=== PATIENT | female | born 1985 | race African-American/Black ===

== ENCOUNTER 2017-07-27 13:36 | Emergency (ER) | payer OTHER ==
[2017-07-27 17:33] LABS: URINE PH (Dip) POC 6.5 (5.0-8.5)
[2017-07-27 17:33] LABS: URINE BLOOD (Dip) POC Negative (NEGATIVE); URINE GLUCOSE (Dip) POC Negative (NEGATIVE); URINE KETONES (Dip) POC Negative (NEGATIVE); URINE LEUKOCYTE EST (Dip) POC Negative (NEGATIVE); URINE NITRITE (Dip) POC Negative (NEGATIVE); URINE TOTAL PROTEIN POC Negative (NEGATIVE)
== END 2017-07-27 17:57 | disposition home or self-care (01) ==
LOC: E/R 13:36
DX: R10.31 Right lower quadrant pain (principal); R10.32 Left lower quadrant pain; R40.2252 Coma scale, best verbal response, oriented, at arrival to emergency department; R40.2142 Coma scale, eyes open, spontaneous, at arrival to emergency department; R40.2362 Coma scale, best motor response, obeys commands, at arrival to emergency department
CPT/HCPCS: 74176; 81003; 99284-25

== ENCOUNTER 2017-09-18 19:48 | Emergency (ER) | payer OTHER ==
[2017-09-18] MEDS: HYDROmorphONE 0.5 MG/0.5 ML SYG IV (23:07)
[2017-09-18] MEDS: ONDANSETRON 4 MG INJ IV (23:07)
[2017-09-18] MEDS: SOD CHLORIDE 0.9% 1,000 ML IV (23:07)
[2017-09-18 23:08] LABS: ADD MAN DIFF? NO
[2017-09-18 23:12] LABS: WHITE BLOOD COUNT 6.4 10^3/ul (4.8-10.8)
[2017-09-18 23:12] LABS: BASOPHILS % 0.5 % (0.0-2.0); EOSINOPHILS # 0.7 10^3/ul (0.0-0.5); EOSINOPHILS % 10.6 % (0.0-7.0); LYMPHOCYTES # 2.4 10^3/ul (0.8-2.9); LYMPHOCYTES % 37.8 % (15.0-51.0); MEAN CORPUSCULAR HEMOGLOBIN 31.5 pg (29.0-33.0); MEAN CORPUSCULAR HGB CONC 33.3 g/dl (32.0-37.0); MEAN CORPUSCULAR VOLUME 94.4 fl (82.0-101.0); MONOCYTE # 0.7 10^3/ul (0.3-0.9); MONOCYTES % 10.9 % (0.0-11.0); NEUTROPHIL # 2.6 10^3/ul (1.6-7.5); PLATELET COUNT 141 10^3/UL (140-415); RED BLOOD COUNT 2.86 10^6/ul (4.20-5.40); RED CELL DISTRIBUTION WIDTH 13.9 % (11.5-14.5)
[2017-09-18 23:29] LABS: ALANINE AMINOTRANSFERASE 44 IU/L (13-69); ALBUMIN 5.2 g/dl (3.3-4.9); ALKALINE PHOSPHATASE 68 IU/L (42-121); ANION GAP 17 (8-16); ASPARTATE AMINO TRANSFERASE 51 IU/L (15-46); BILIRUBIN,INDIRECT 0.4 mg/dl (0-1.1); BILIRUBIN,TOTAL 0.4 mg/dl (0.2-1.3); BLOOD UREA NITROGEN 8 mg/dl (7-20); CALCIUM 9.7 mg/dl (8.4-10.2); CARBON DIOXIDE 28 mmol/L (21-31); CHLORIDE 105 mmol/L (97-110); CREATININE 1.01 mg/dl (0.44-1.00); GLUCOSE 80 mg/dl (70-220); LIPASE 39 U/L (23-300); POTASSIUM 4.2 mmol/L (3.5-5.1); SODIUM 146 mmol/L (135-144)
[2017-09-18 23:37] LABS: TOTAL PROTEIN 10.4 g/dl (6.1-8.1); URINE BLOOD (Dip) POC Trace-intact (NEGATIVE); URINE GLUCOSE (Dip) POC Negative (NEGATIVE); URINE KETONES (Dip) POC Negative (NEGATIVE); URINE LEUKOCYTE EST (Dip) POC 1+ (NEGATIVE); URINE NITRITE (Dip) POC Negative (NEGATIVE); URINE TOTAL PROTEIN POC Negative (NEGATIVE)
[2017-09-19] MEDS: HYDROmorphONE 0.5 MG/0.5 ML SYG IV (01:22)
== END 2017-09-19 02:13 | disposition home or self-care (01) ==
LOC: FTE 09-19 02:13
DX: G43.909 Migraine, unspecified, not intractable, without status migrainosus (principal); N30.00 Acute cystitis without hematuria; D64.9 Anemia, unspecified; E03.9 Hypothyroidism, unspecified
CPT/HCPCS: 36415; 80053; 81003; 83690; 85025; 96374; 96375; 96376; 99284-25

== ENCOUNTER 2017-09-19 19:10 | Emergency (ER) | payer OTHER ==
[2017-09-19] MEDS: DIPHENHYDRAMINE 50 MG INJ IV (23:31)
[2017-09-19] MEDS: METOCLOPRAMIDE 10 MG INJ IV ×2 (23:31→23:52)
[2017-09-19] MEDS: KETOROLAC 30 MG INJ IV (23:32)
[2017-09-19 23:55] LABS: ADD MAN DIFF? NO
[2017-09-19 23:57] LABS: BASOPHIL # 0.1 10^3/ul (0.0-0.1); BASOPHILS % 0.8 % (0.0-2.0); EOSINOPHILS # 0.5 10^3/ul (0.0-0.5); EOSINOPHILS % 8.8 % (0.0-7.0); HEMATOCRIT 26.5 % (37.0-47.0); HEMOGLOBIN 8.9 g/dl (12.0-16.0); LYMPHOCYTES # 1.9 10^3/ul (0.8-2.9); LYMPHOCYTES % 31.1 % (15.0-51.0); MEAN CORPUSCULAR HEMOGLOBIN 31.8 pg (29.0-33.0); MEAN CORPUSCULAR HGB CONC 33.6 g/dl (32.0-37.0); MEAN CORPUSCULAR VOLUME 94.6 fl (82.0-101.0); MEAN PLATELET VOLUME 11.1 fl (7.4-10.4); MONOCYTE # 0.7 10^3/ul (0.3-0.9); MONOCYTES % 10.8 % (0.0-11.0); NEUTROPHIL # 2.9 10^3/ul (1.6-7.5); NEUTROPHILS % 48.3 % (39.0-77.0); PLATELET COUNT 141 10^3/UL (140-415); RED CELL DISTRIBUTION WIDTH 13.9 % (11.5-14.5)
[2017-09-20 00:13] LABS: ANION GAP 16 (8-16); BLOOD UREA NITROGEN 10 mg/dl (7-20); CALCIUM 9.7 mg/dl (8.4-10.2); CARBON DIOXIDE 29 mmol/L (21-31); CHLORIDE 105 mmol/L (97-110); CREATININE 1.18 mg/dl (0.44-1.00); GLUCOSE 84 mg/dl (70-220); POTASSIUM 4.2 mmol/L (3.5-5.1); SODIUM 146 mmol/L (135-144)
== END 2017-09-20 01:18 | disposition home or self-care (01) ==
LOC: FTE 09-20 01:18
DX: R51 Headache (principal); F17.210 Nicotine dependence, cigarettes, uncomplicated; E03.9 Hypothyroidism, unspecified
CPT/HCPCS: 36415; 70450; 80048; 85025; 96374; 96375; 99285-25

== ENCOUNTER 2017-12-29 16:38 | Emergency (ER) | payer OTHER ==
[2017-12-29] MEDS: DIPHENHYDRAMINE 50 MG INJ IV (19:11)
[2017-12-29] MEDS: KETOROLAC 30 MG INJ IV (19:11)
[2017-12-29 19:24] LABS: ADD MAN DIFF? NO
[2017-12-29 19:30] LABS: ADD UMIC NO; UR ASCORBIC ACID NEGATIVE (NEGATIVE); UR BILIRUBIN (Dip) NEGATIVE (NEGATIVE); UR BLOOD (Dip) NEGATIVE (NEGATIVE); UR CLARITY CLEAR (CLEAR); UR COLOR STRAW (YELLOW); UR GLUCOSE (Dip) NEGATIVE (NEGATIVE); UR KETONES (Dip) NEGATIVE (NEGATIVE); UR LEUKOCYTE ESTERASE (Dip) NEGATIVE Leu/ul (NEGATIVE); UR NITRITE (Dip) NEGATIVE (NEGATIVE); UR SPECIFIC GRAVITY (Dip) 1.012 (1.003-1.030); UR TOTAL PROTEIN (Dip) NEGATIVE (NEGATIVE); UR UROBILINOGEN (Dip) NEGATIVE (NEGATIVE)
[2017-12-29 19:31] LABS: WHITE BLOOD COUNT 6.1 10^3/ul (4.8-10.8)
[2017-12-29 19:31] LABS: ABNORMAL IP MESSAGE 1; BASOPHILS % 0.7 % (0.0-2.0); EOSINOPHILS # 0.2 10^3/ul (0.0-0.5); EOSINOPHILS % 3.8 % (0.0-7.0); HEMATOCRIT 26.7 % (37.0-47.0); LYMPHOCYTES # 2.1 10^3/ul (0.8-2.9); LYMPHOCYTES % 34.8 % (15.0-51.0); MEAN CORPUSCULAR HEMOGLOBIN 30.9 pg (29.0-33.0); MEAN CORPUSCULAR HGB CONC 33.7 g/dl (32.0-37.0); MEAN CORPUSCULAR VOLUME 91.8 fl (82.0-101.0); MEAN PLATELET VOLUME 12.8 fl (7.4-10.4); MONOCYTE # 0.5 10^3/ul (0.3-0.9); MONOCYTES % 8.4 % (0.0-11.0); NEUTROPHIL # 3.2 10^3/ul (1.6-7.5); PLATELET COUNT 95 10^3/UL (140-415); POSITIVE DIFF @See below; RED BLOOD COUNT 2.91 10^6/ul (4.20-5.40)
[2017-12-29 19:47] LABS: ALANINE AMINOTRANSFERASE 65 IU/L (13-69); ALKALINE PHOSPHATASE 61 IU/L (42-121); ANION GAP 14 (8-16); ASPARTATE AMINO TRANSFERASE 77 IU/L (15-46); BILIRUBIN,INDIRECT 0.4 mg/dl (0-1.1); BILIRUBIN,TOTAL 0.4 mg/dl (0.2-1.3); BLOOD UREA NITROGEN 10 mg/dl (7-20); CALCIUM 9.8 mg/dl (8.4-10.2); CARBON DIOXIDE 30 mmol/L (21-31); CHLORIDE 101 mmol/L (97-110); CREATININE 1.34 mg/dl (0.44-1.00); GLUCOSE 87 mg/dl (70-220); POTASSIUM 4.1 mmol/L (3.5-5.1)
[2017-12-29 19:55] LABS: B-TYPE NATRIURETIC PEPTIDE 40 PG/ML (0-125)
[2017-12-29 20:00] LABS: SODIUM 141 mmol/L (135-144); TOTAL PROTEIN 11.2 g/dl (6.1-8.1)
== END 2017-12-29 23:22 | disposition home or self-care (01) ==
LOC: FTE 16:38
DX: H02.841 Edema of right upper eyelid (principal); F17.210 Nicotine dependence, cigarettes, uncomplicated; E03.9 Hypothyroidism, unspecified; H02.844 Edema of left upper eyelid
CPT/HCPCS: 36415; 71045; 80053; 81003; 81025; 83880; 85025; 96374; 96375; 99284-25

== ENCOUNTER 2018-03-08 12:25 | Emergency (ER) | payer OTHER ==
[2018-03-08] MEDS: morphine 4 MG/ML VIAL IV (13:28)
[2018-03-08] MEDS: ONDANSETRON 4 MG INJ IV (13:29)
[2018-03-08] MEDS: SOD CHLORIDE 0.9% 1,000 ML IV (13:29)
[2018-03-08 13:39] LABS: ADD MAN DIFF? NO
[2018-03-08 13:51] LABS: WHITE BLOOD COUNT 5.7 10^3/ul (4.8-10.8)
[2018-03-08 13:51] LABS: BASOPHILS % 0.7 % (0.0-2.0); EOSINOPHILS # 0.2 10^3/ul (0.0-0.5); EOSINOPHILS % 3.3 % (0.0-7.0); HEMATOCRIT 26.3 % (37.0-47.0); HEMOGLOBIN 8.7 g/dl (12.0-16.0); LYMPHOCYTES # 1.8 10^3/ul (0.8-2.9); LYMPHOCYTES % 31.6 % (15.0-51.0); MEAN CORPUSCULAR HEMOGLOBIN 31.4 pg (29.0-33.0); MEAN CORPUSCULAR HGB CONC 33.1 g/dl (32.0-37.0); MEAN CORPUSCULAR VOLUME 94.9 fl (82.0-101.0); MEAN PLATELET VOLUME 11.4 fl (7.4-10.4); MONOCYTES % 16.9 % (0.0-11.0); NEUTROPHIL # 2.7 10^3/ul (1.6-7.5); NEUTROPHILS % 47.3 % (39.0-77.0); PLATELET COUNT 140 10^3/UL (140-415); RED BLOOD COUNT 2.77 10^6/ul (4.20-5.40); RED CELL DISTRIBUTION WIDTH 13.4 % (11.5-14.5)
[2018-03-08 14:11] LABS: ALANINE AMINOTRANSFERASE 44 IU/L (13-69); ALBUMIN 4.6 g/dl (3.3-4.9); ALBUMIN/GLOBULIN RATIO 0.73; ALKALINE PHOSPHATASE 80 IU/L (42-121); ANION GAP 13 (8-16); ASPARTATE AMINO TRANSFERASE 52 IU/L (15-46); BILIRUBIN,INDIRECT 0.4 mg/dl (0-1.1); BILIRUBIN,TOTAL 0.4 mg/dl (0.2-1.3); BLOOD UREA NITROGEN 10 mg/dl (7-20); CALCIUM 10.1 mg/dl (8.4-10.2); CARBON DIOXIDE 28 mmol/L (21-31); CHLORIDE 106 mmol/L (97-110); CREATININE 0.98 mg/dl (0.44-1.00); GLUCOSE 90 mg/dl (70-220); POTASSIUM 4.5 mmol/L (3.5-5.1); SODIUM 142 mmol/L (135-144); TOTAL PROTEIN 10.9 g/dl (6.1-8.1)
[2018-03-08 14:18] LABS: ADD UMIC YES; UR ASCORBIC ACID 20 mg/dL (NEGATIVE); UR BACTERIA FEW /HPF (NONE SEEN); UR BILIRUBIN (Dip) NEGATIVE (NEGATIVE); UR BLOOD (Dip) NEGATIVE (NEGATIVE); UR CLARITY SLIGHTLY CLOUDY (CLEAR); UR COLOR YELLOW (YELLOW); UR GLUCOSE (Dip) NEGATIVE (NEGATIVE); UR KETONES (Dip) NEGATIVE (NEGATIVE); UR LEUKOCYTE ESTERASE (Dip) 2+ Leu/ul (NEGATIVE); UR MUCUS FEW /HPF (NONE SEEN); UR NITRITE (Dip) NEGATIVE (NEGATIVE); UR RBC 5 /HPF (0-5); UR SPECIFIC GRAVITY (Dip) 1.015 (1.003-1.030); UR SQUAMOUS EPITHELIAL CELL MODERATE /HPF (FEW); UR TOTAL PROTEIN (Dip) NEGATIVE (NEGATIVE); UR UROBILINOGEN (Dip) NEGATIVE (NEGATIVE); UR WBC 6 /HPF (0-5)
[2018-03-08 14:22] LABS: TROPONIN-I < 0.012 ng/ml (0.000-0.120)
[2018-03-08 14:26] LABS: FREE THYROXINE INDEX (Calc) 4.61 ug/ml (0.65-3.89); T3 UPTAKE 30.3 % (23.5-40.5); T4 (THYROXINE) 15.2 ug/dl (5.5-11.0)
[2018-03-08 14:27] LABS: INR 1.03; PARTIAL THROMBOPLASTIN TIME 32.4 Sec (25.0-35.0); PROTIME 13.6 Sec (11.9-14.9); PT RATIO 1.1
[2018-03-08] MEDS: HYDROmorphONE 0.5 MG/0.5 ML SYG IV ×2 (14:52→15:53)
== END 2018-03-08 16:03 | disposition home or self-care (01) ==
LOC: FTE 12:25
DX: N39.0 Urinary tract infection, site not specified (principal); R42 Dizziness and giddiness; M79.89 Other specified soft tissue disorders; E03.9 Hypothyroidism, unspecified; F17.210 Nicotine dependence, cigarettes, uncomplicated
CPT/HCPCS: 70450; 71046; 80053; 81001; 81025; 84436; 84443; 84479; 84484; 85025; 85610; 85730; 87086; 93005; 93970; 96361; 96374; 96375; 96376; 99285-25

== ENCOUNTER 2018-05-10 12:30 | Emergency (ER) | payer OTHER ==
[2018-05-10 13:16] LABS: ABNORMAL IP MESSAGE 1; ADD MAN DIFF? NO; BASOPHIL # 0.1 10^3/ul (0.0-0.1); BASOPHILS % 0.8 % (0.0-2.0); EOSINOPHILS # 0.2 10^3/ul (0.0-0.5); EOSINOPHILS % 3.2 % (0.0-7.0); HEMOGLOBIN 9.7 g/dl (12.0-16.0); LYMPHOCYTES # 2.7 10^3/ul (0.8-2.9); LYMPHOCYTES % 40.4 % (15.0-51.0); MEAN CORPUSCULAR HEMOGLOBIN 30.8 pg (29.0-33.0); MEAN CORPUSCULAR HGB CONC 33.4 g/dl (32.0-37.0); MEAN CORPUSCULAR VOLUME 92.1 fl (82.0-101.0); MONOCYTE # 0.5 10^3/ul (0.3-0.9); MONOCYTES % 7.5 % (0.0-11.0); NEUTROPHIL # 3.2 10^3/ul (1.6-7.5); NEUTROPHILS % 47.9 % (39.0-77.0); RED BLOOD COUNT 3.15 10^6/ul (4.20-5.40); RED CELL DISTRIBUTION WIDTH 13.2 % (11.5-14.5)
[2018-05-10 13:16] LABS: WHITE BLOOD COUNT 6.6 10^3/ul (4.8-10.8)
[2018-05-10 13:18] LABS: POSITIVE DIFF @See below
[2018-05-10 13:35] LABS: INR 0.99; PROTIME 13.2 Sec (11.9-14.9)
[2018-05-10 13:36] LABS: PARTIAL THROMBOPLASTIN TIME 32.1 Sec (23.0-35.0)
[2018-05-10 13:48] LABS: PLATELET COUNT 29 10^3/UL (140-415)
[2018-05-10 13:51] LABS: BAND NEUTROPHILS #M 0.1 10^3/ul (0.0-0.6); BAND NEUTROPHILS % (M) 3 % (0-4); BURR CELLS 1+ (0-0); EOSINOPHILS % (M) 5 % (0-7); LYMPHOCYTES #M 2.9 10^3/ul (0.8-2.9); LYMPHOCYTES % (M) 45 % (15-51); MONOCYTE #M 0.2 10^3/ul (0.3-0.9); MONOCYTES % (M) 4 % (0-11); PLATELET ESTIMATE SIG DECREASED; PLATELET MORPHOLOGY COMMENT @See below; POIKILOCYTOSIS 1+ (0-0); POLYCHROMASIA 1+ (0-0); SEG NEUT #M 2.8 10^3/ul (1.6-7.5); SEGMENTED NEUTROPHILS (M) % 43 % (39-77); SMUDGE%M 16 % (0-0)
[2018-05-10] MEDS: ONDANSETRON (ODT) 4 MG TAB ODT (14:02)
== END 2018-05-10 14:36 | disposition home or self-care (01) ==
LOC: E/R 12:30
DX: S80.12XA Contusion of left lower leg, initial encounter (principal); D69.6 Thrombocytopenia, unspecified; D64.9 Anemia, unspecified; E03.9 Hypothyroidism, unspecified; F17.210 Nicotine dependence, cigarettes, uncomplicated; X58.XXXA Exposure to other specified factors, initial encounter; Y92.9 Unspecified place or not applicable
CPT/HCPCS: 76536; 85025; 85610; 85730; 99284-25

== ENCOUNTER 2018-08-09 13:04 | Emergency (ER) | payer OTHER ==
[2018-08-09] MEDS: HYDROmorphONE 0.5 MG/0.5 ML SYG IV (14:05)
[2018-08-09] MEDS: SOD CHLORIDE 0.9% 1,000 ML IV (14:05)
[2018-08-09] MEDS: METHYLPREDNISOLONE 125 MG INJ IV (14:05)
[2018-08-09 14:12] LABS: ABNORMAL IP MESSAGE 1; HEMATOCRIT 26.1 % (37.0-47.0); HEMOGLOBIN 8.7 g/dl (12.0-16.0); MEAN CORPUSCULAR HEMOGLOBIN 30.9 pg (29.0-33.0); MEAN CORPUSCULAR HGB CONC 33.3 g/dl (32.0-37.0); MEAN CORPUSCULAR VOLUME 92.6 fl (82.0-101.0); MEAN PLATELET VOLUME 12.3 fl (7.4-10.4); RED BLOOD COUNT 2.82 10^6/ul (4.20-5.40); RED CELL DISTRIBUTION WIDTH 14.2 % (11.5-14.5); RETICULOCYTE COUNT # 0.037 X10^6 (0.020-0.110); RETICULOCYTE COUNT % 1.3 % (0.5-1.5); RETICULOCYTE RBC 2.82
[2018-08-09 14:12] LABS: WHITE BLOOD COUNT 5.3 10^3/ul (4.8-10.8)
[2018-08-09 14:14] LABS: POSITIVE DIFF @See below
[2018-08-09 14:16] LABS: PLATELET COUNT 30 10^3/UL (140-415)
[2018-08-09 14:17] LABS: ADD MAN DIFF? YES; PATH REVIEW? YES
[2018-08-09 14:31] LABS: ALANINE AMINOTRANSFERASE 24 IU/L (13-69); ALBUMIN 5.2 g/dl (3.3-4.9); ALKALINE PHOSPHATASE 58 IU/L (42-121); ANION GAP 15 (5-13); ASPARTATE AMINO TRANSFERASE 49 IU/L (15-46); BILIRUBIN,INDIRECT 0.2 mg/dl (0-1.1); BILIRUBIN,TOTAL 0.2 mg/dl (0.2-1.3); BLOOD UREA NITROGEN 8 mg/dl (7-20); CARBON DIOXIDE 26 mmol/L (21-31); CHLORIDE 101 mmol/L (97-110); CREATININE 1.19 mg/dl (0.44-1.00); Estimated GFR > 60 mL/min (>60); GLUCOSE 102 mg/dl (70-220); INR 0.95; PARTIAL THROMBOPLASTIN TIME 31.3 Sec (23.0-35.0); PROTIME 12.8 Sec (11.9-14.9); SODIUM 142 mmol/L (135-144)
[2018-08-09 14:40] LABS: ALBUMIN/GLOBULIN RATIO 0.88; TOTAL PROTEIN 11.1 g/dl (6.1-8.1)
[2018-08-09 14:51] LABS: BAND NEUTROPHILS #M 0.2 10^3/ul (0.0-0.6); BAND NEUTROPHILS % (M) 5 % (0-4); BASOPHIL #M 0.1 10^3/ul (0.0-0.0); BASOPHILS % (M) 2 % (0-2); EOSINOPHILS % (M) 5 % (0-7); LYMPHOCYTES #M 1.6 10^3/ul (0.8-2.9); LYMPHOCYTES % (M) 31 % (15-51); MONOCYTE #M 0.4 10^3/ul (0.3-0.9); MONOCYTES % (M) 9 % (0-11); PLATELET ESTIMATE DECREASED; POLYCHROMASIA 1+ (0-0); REACTIVE LYMPHOCYTES #M 0.1 10^3/ul (0.0-0.0); REACTIVE LYMPHOCYTES% (M) 2 % (0-0); SEG NEUT #M 2.4 10^3/ul (1.6-7.5); SEGMENTED NEUTROPHILS (M) % 46 % (39-77); SMUDGE%M 17 % (0-0)
[2018-08-09] MEDS: ONDANSETRON 4 MG INJ IV (15:02)
[2018-08-09] MEDS: HYDROmorphONE 2 MG/ML SYG IV (15:02)
== END 2018-08-09 15:52 | disposition home or self-care (01) ==
LOC: E/R 15:52
DX: G89.4 Chronic pain syndrome (principal); D69.3 Immune thrombocytopenic purpura; D64.9 Anemia, unspecified; N18.9 Chronic kidney disease, unspecified; E03.9 Hypothyroidism, unspecified; Z87.891 Personal history of nicotine dependence
CPT/HCPCS: 80053; 81025; 85025; 85045; 85610; 85730; 96374; 96375; 96376; 99284-25

== ENCOUNTER 2018-10-11 12:41 | Emergency (ER) | payer OTHER ==
[2018-10-11 14:44] LABS: ABNORMAL IP MESSAGE 1; HEMATOCRIT 25.4 % (37.0-47.0); HEMOGLOBIN 8.3 g/dl (12.0-16.0); MEAN CORPUSCULAR HEMOGLOBIN 31.2 pg (29.0-33.0); MEAN CORPUSCULAR HGB CONC 32.7 g/dl (32.0-37.0); MEAN CORPUSCULAR VOLUME 95.5 fl (82.0-101.0); MEAN PLATELET VOLUME 12.2 fl (7.4-10.4); RED BLOOD COUNT 2.66 10^6/ul (4.20-5.40); RED CELL DISTRIBUTION WIDTH 12.9 % (11.5-14.5)
[2018-10-11 14:44] LABS: WHITE BLOOD COUNT 5.3 10^3/ul (4.8-10.8)
[2018-10-11] MEDS: ONDANSETRON 4 MG INJ IV ×2 (14:52→17:49)
[2018-10-11] MEDS: HYDROmorphONE 1 MG/ML SYG IV ×2 (14:52→17:50)
[2018-10-11] MEDS: DIPHENHYDRAMINE 50 MG INJ IV ×2 (14:52→17:49)
[2018-10-11 14:53] LABS: ADD MAN DIFF? YES; PLATELET COUNT 27 10^3/UL (140-415); POSITIVE DIFF @See below
[2018-10-11 15:04] LABS: PARTIAL THROMBOPLASTIN TIME 32.2 Sec (23.0-35.0); PROTIME 13.3 Sec (11.9-14.9)
[2018-10-11 15:05] LABS: RETICULOCYTE COUNT # 0.043 X10^6 (0.020-0.110); RETICULOCYTE COUNT % 1.6 % (0.5-1.5)
[2018-10-11 15:05] LABS: RETICULOCYTE RBC 2.67
[2018-10-11 15:09] LABS: ALANINE AMINOTRANSFERASE 29 IU/L (13-69); ALBUMIN 4.7 g/dl (3.3-4.9); ALBUMIN/GLOBULIN RATIO 0.94; ALKALINE PHOSPHATASE 53 IU/L (42-121); ANION GAP 9 (5-13); ASPARTATE AMINO TRANSFERASE 34 IU/L (15-46); BILIRUBIN,INDIRECT 0.2 mg/dl (0-1.1); BILIRUBIN,TOTAL 0.2 mg/dl (0.2-1.3); BLOOD UREA NITROGEN 10 mg/dl (7-20); CALCIUM 9.4 mg/dl (8.4-10.2); CARBON DIOXIDE 31 mmol/L (21-31); CHLORIDE 103 mmol/L (97-110); CREATININE 1.06 mg/dl (0.44-1.00); Estimated GFR > 60 mL/min (>60); GLUCOSE 78 mg/dl (70-220); POTASSIUM 4.1 mmol/L (3.5-5.1); SODIUM 143 mmol/L (135-144); TOTAL PROTEIN 9.7 g/dl (6.1-8.1)
[2018-10-11] MEDS: ARTIFICIAL TEARS 15 ML OPH BOTH EYES (15:12)
[2018-10-11] MEDS: SOD CHLORIDE 0.9% 1,000 ML IV (15:12)
[2018-10-11] MEDS: TETRACAINE 0.5% 4 ML OPH BOTH EYES (15:12)
[2018-10-11 15:44] LABS: BASOPHILS % (M) 1 % (0-2); EOSINOPHILS % (M) 14 % (0-7); ERYTHROBLAST% (NRBC) (M) 1 % (0-0); HYPOCHROMASIA 1+ (0-0); LYMPHOCYTES #M 1.9 10^3/ul (0.8-2.9); LYMPHOCYTES % (M) 36 % (15-51); MONOCYTE #M 0.3 10^3/ul (0.3-0.9); MONOCYTES % (M) 7 % (0-11); PLATELET ESTIMATE SIG DECREASED; POLYCHROMASIA 1+ (0-0); SEGMENTED NEUTROPHILS (M) % 42 % (39-77)
== END 2018-10-11 19:00 | disposition home or self-care (01) ==
LOC: FTE 12:41 → E/R 19:00
DX: H18.893 Other specified disorders of cornea, bilateral (principal); D69.6 Thrombocytopenia, unspecified; M32.9 Systemic lupus erythematosus, unspecified; Z87.891 Personal history of nicotine dependence
CPT/HCPCS: 36415; 80053; 84703; 85025; 85045; 85610; 85730; 96374; 96375; 96376; 99284-25

== ENCOUNTER 2018-12-02 11:24 | Emergency (ER) | payer OTHER ==
[2018-12-02] MEDS: HYDROmorphONE 1 MG/ML SYG IV (12:54)
[2018-12-02] MEDS: SOD CHLORIDE 0.9% 1,000 ML IV (12:54)
[2018-12-02] MEDS: ONDANSETRON 4 MG INJ IV (12:54)
[2018-12-02] MEDS: DIPHENHYDRAMINE 50 MG INJ IV (12:54)
[2018-12-02 13:01] LABS: WHITE BLOOD COUNT 7.5 10^3/ul (4.8-10.8)
[2018-12-02 13:01] LABS: ABNORMAL IP MESSAGE 1; HEMATOCRIT 28.6 % (37.0-47.0); HEMOGLOBIN 9.9 g/dl (12.0-16.0); MEAN CORPUSCULAR HEMOGLOBIN 31.5 pg (29.0-33.0); MEAN CORPUSCULAR HGB CONC 34.6 g/dl (32.0-37.0); MEAN CORPUSCULAR VOLUME 91.1 fl (82.0-101.0); RED BLOOD COUNT 3.14 10^6/ul (4.20-5.40); RED CELL DISTRIBUTION WIDTH 13.2 % (11.5-14.5)
[2018-12-02 13:02] LABS: ADD MAN DIFF? YES; PLATELET COUNT 47 10^3/UL (140-415); POSITIVE DIFF @See below
[2018-12-02 13:03] LABS: ADD UMIC YES; UR ASCORBIC ACID NEGATIVE (NEGATIVE); UR BACTERIA FEW /HPF (NONE SEEN); UR BILIRUBIN (Dip) NEGATIVE (NEGATIVE); UR BLOOD (Dip) NEGATIVE (NEGATIVE); UR CLARITY CLOUDY (CLEAR); UR COLOR YELLOW (YELLOW); UR GLUCOSE (Dip) NEGATIVE (NEGATIVE); UR KETONES (Dip) NEGATIVE (NEGATIVE); UR LEUKOCYTE ESTERASE (Dip) NEGATIVE Leu/ul (NEGATIVE); UR MUCUS FEW /HPF (NONE SEEN); UR NITRITE (Dip) NEGATIVE (NEGATIVE); UR RBC 0 /HPF (0-5); UR SPECIFIC GRAVITY (Dip) 1.014 (1.003-1.030); UR SQUAMOUS EPITHELIAL CELL MODERATE /HPF (FEW); UR TOTAL PROTEIN (Dip) NEGATIVE (NEGATIVE); UR UROBILINOGEN (Dip) 1+ mg/dL (NEGATIVE); UR WBC 2 /HPF (0-5)
[2018-12-02 13:07] LABS: ANION GAP 7 (5-13); BLOOD UREA NITROGEN 7 mg/dl (7-20); CALCIUM 9.3 mg/dl (8.4-10.2); CARBON DIOXIDE 28 mmol/L (21-31); CHLORIDE 107 mmol/L (97-110); CREATININE 0.88 mg/dl (0.44-1.00); Estimated GFR > 60 mL/min (>60); GLUCOSE 64 mg/dl (70-220); POTASSIUM 3.8 mmol/L (3.5-5.1); SODIUM 142 mmol/L (135-144)
[2018-12-02] MEDS: HYDROmorphONE 2 MG/ML SYG IV (13:27)
== END 2018-12-02 14:33 | disposition home or self-care (01) ==
LOC: E/R 11:24
DX: D57.00 Hb-SS disease with crisis, unspecified (principal); E03.9 Hypothyroidism, unspecified; Z87.891 Personal history of nicotine dependence
CPT/HCPCS: 36415; 80048; 81001; 81025; 85025; 93005; 96374; 96375; 96376; 99284-25

== ENCOUNTER 2019-01-06 12:51 | Inpatient (IN) | payer OTHER ==
[2019-01-06 15:50] LABS: ABNORMAL IP MESSAGE 1; HEMATOCRIT 31.9 % (37.0-47.0); HEMOGLOBIN 10.6 g/dl (12.0-16.0); MEAN CORPUSCULAR HEMOGLOBIN 29.4 pg (29.0-33.0); MEAN CORPUSCULAR HGB CONC 33.2 g/dl (32.0-37.0); MEAN CORPUSCULAR VOLUME 88.6 fl (82.0-101.0); RED CELL DISTRIBUTION WIDTH 13.5 % (11.5-14.5); RETICULOCYTE COUNT # 0.054 X10^6 (0.020-0.110); RETICULOCYTE COUNT % 1.5 % (0.5-1.5)
[2019-01-06 15:50] LABS: WHITE BLOOD COUNT 6.5 10^3/ul (4.8-10.8)
[2019-01-06 15:53] LABS: PLATELET COUNT 3 10^3/UL (140-415); POSITIVE DIFF @See below
[2019-01-06 15:54] LABS: PATH REVIEW? YES
[2019-01-06 15:55] LABS: ADD MAN DIFF? YES
[2019-01-06] MEDS: SOD CHLORIDE 0.9% 1,000 ML IV (16:05)
[2019-01-06] MEDS: ONDANSETRON 4 MG INJ IV ×3 (16:07→19:56)
[2019-01-06] MEDS: HYDROmorphONE 1 MG/ML SYG IV ×3 (16:07→23:25)
[2019-01-06] MEDS: DIPHENHYDRAMINE 50 MG INJ IV ×2 (16:07→20:13)
[2019-01-06 16:16] LABS: ALANINE AMINOTRANSFERASE 14 IU/L (13-69); ALBUMIN 4.9 g/dl (3.3-4.9); ALBUMIN/GLOBULIN RATIO 0.85; ALKALINE PHOSPHATASE 69 IU/L (42-121); ANION GAP 10 (5-13); ASPARTATE AMINO TRANSFERASE 38 IU/L (15-46); BILIRUBIN,INDIRECT 0.5 mg/dl (0-1.1); BILIRUBIN,TOTAL 0.5 mg/dl (0.2-1.3); BLOOD UREA NITROGEN 8 mg/dl (7-20); CALCIUM 9.7 mg/dl (8.4-10.2); CARBON DIOXIDE 30 mmol/L (21-31); CHLORIDE 103 mmol/L (97-110); CREATININE 0.98 mg/dl (0.44-1.00); Estimated GFR > 60 mL/min (>60); GLUCOSE 94 mg/dl (70-220); POTASSIUM 3.9 mmol/L (3.5-5.1); SODIUM 143 mmol/L (135-144); TOTAL PROTEIN 10.6 g/dl (6.1-8.1)
[2019-01-06 16:17] LABS: INR 1.01; PROTIME 13.4 Sec (11.9-14.9)
[2019-01-06 16:18] LABS: PARTIAL THROMBOPLASTIN TIME 29.7 Sec (23.0-35.0)
[2019-01-06 17:15] LABS: ANISOCYTOSIS 1+ (0-0); BASOPHILS % (M) 1 % (0-2); EOSINOPHILS % (M) 2 % (0-7); LYMPHOCYTES #M 1.4 10^3/ul (0.8-2.9); LYMPHOCYTES % (M) 23 % (15-51); MONOCYTE #M 0.5 10^3/ul (0.3-0.9); MONOCYTES % (M) 9 % (0-11); SEGMENTED NEUTROPHILS (M) % 65 % (39-77); SMUDGE%M 18 % (0-0)
[2019-01-06] MEDS ORDERED: NACL 0.9% 3 ML SYG IV (17:30)
[2019-01-06] MEDS ORDERED: BISACODYL 10 MG SUPP PR (17:30)
[2019-01-06] MEDS ORDERED: ACETAMINOPHEN 325 MG TAB PO ×2 (17:30)
[2019-01-06] MEDS ORDERED: MAGNESIUM HYDROXIDE 30ML CUP PO (17:30)
[2019-01-06] MEDS ORDERED: DOCUSATE SODIUM 100 MG CAP PO (17:30)
[2019-01-06] MEDS ORDERED: IMMUNE GLOBULIN (HUMAN) 6 GM INJ IV (19:30)
[2019-01-06] MEDS: HYDROmorphONE 0.5 MG/0.5 ML SYG IV (19:56)
[2019-01-06] MEDS: EVAC CONTAINER IVPB (20:05)
[2019-01-06] MEDS: GLY IVPB (20:05)
[2019-01-06] MEDS: IGA AVG IVPB (20:05)
[2019-01-06] MEDS: IMMUNE GLOBUL IVPB (20:05)
[2019-01-06] MEDS: IMMUNE GLOBULIN IVPB (20:05)
[2019-01-06] MEDS: OXYCODONE/ACETAMINOPHEN (5/325) TAB PO (21:17)
[2019-01-07] MEDS: HYDROmorphONE 0.5 MG/0.5 ML SYG IV (01:20)
[2019-01-07 02:52] LABS: TYPE AND SCREEN 1 1
[2019-01-07 06:50] LABS: ADD MAN DIFF? NO
[2019-01-07 06:57] LABS: WHITE BLOOD COUNT 6.6 10^3/ul (4.8-10.8)
[2019-01-07 06:57] LABS: BASOPHILS % 0.5 % (0.0-2.0); EOSINOPHILS # 0.2 10^3/ul (0.0-0.5); EOSINOPHILS % 2.7 % (0.0-7.0); HEMATOCRIT 23.6 % (37.0-47.0); HEMOGLOBIN 7.8 g/dl (12.0-16.0); LYMPHOCYTES # 1.6 10^3/ul (0.8-2.9); LYMPHOCYTES % 24.1 % (15.0-51.0); MEAN CORPUSCULAR HEMOGLOBIN 30.8 pg (29.0-33.0); MEAN CORPUSCULAR HGB CONC 33.1 g/dl (32.0-37.0); MEAN CORPUSCULAR VOLUME 93.3 fl (82.0-101.0); MEAN PLATELET VOLUME 10.7 fl (7.4-10.4); MONOCYTE # 0.5 10^3/ul (0.3-0.9); MONOCYTES % 7.4 % (0.0-11.0); NEUTROPHIL # 4.3 10^3/ul (1.6-7.5); PLATELET COUNT 102 10^3/UL (140-415); RED BLOOD COUNT 2.53 10^6/ul (4.20-5.40); RED CELL DISTRIBUTION WIDTH 14.1 % (11.5-14.5)
[2019-01-07] MEDS: LEVOTHYROXINE 100 MCG TAB PO (07:02)
[2019-01-07 07:28] LABS: ALANINE AMINOTRANSFERASE 12 IU/L (13-69); ALBUMIN/GLOBULIN RATIO 0.72; ALKALINE PHOSPHATASE 56 IU/L (42-121); ANION GAP 8 (5-13); ASPARTATE AMINO TRANSFERASE 29 IU/L (15-46); BILIRUBIN,INDIRECT 0.4 mg/dl (0-1.1); BILIRUBIN,TOTAL 0.4 mg/dl (0.2-1.3); BLOOD UREA NITROGEN 12 mg/dl (7-20); CALCIUM 8.8 mg/dl (8.4-10.2); CARBON DIOXIDE 27 mmol/L (21-31); CHLORIDE 107 mmol/L (97-110); CREATININE 1.12 mg/dl (0.44-1.00); Estimated GFR > 60 mL/min (>60); GLUCOSE 82 mg/dl (70-220); POTASSIUM 4.2 mmol/L (3.5-5.1); SODIUM 142 mmol/L (135-144); TOTAL PROTEIN 9.5 g/dl (6.1-8.1)
[2019-01-07 07:51] LABS: FREE T4 (FREE THYROXINE) 0.15 ng/dl (0.79-2.35)
[2019-01-07] MEDS: HYDROmorphONE 1 MG/ML SYG IV ×5 (08:04→21:33)
[2019-01-07] MEDS: ONDANSETRON 4 MG INJ IV (08:05)
[2019-01-07] MEDS: DIPHENHYDRAMINE 50 MG CAP PO (08:15)
[2019-01-07] MEDS: CHOLECALCIFEROL 1,000 UNIT TAB PO (08:15)
[2019-01-07] MEDS: OXYCODONE/ACETAMINOPHEN (5/325) TAB PO (09:55)
[2019-01-07] MEDS ORDERED: LEVOTHYROXINE 100 MCG TAB PO (11:30)
[2019-01-07] MEDS: SOD CHLORIDE 0.9% 500 ML IV (11:57)
[2019-01-07] MEDS: SOD CHLORIDE 0.9% 1,000 ML IV ×2 (13:14→21:37)
[2019-01-07] MEDS: CYCLOBENZAPRINE 10 MG TAB PO ×2 (14:13→19:54)
[2019-01-07] MEDS ORDERED: OXYCODONE/ACETAMINOPHEN (10/325) TAB PO (14:30)
[2019-01-07 16:26] LABS: ADD MAN DIFF? NO
[2019-01-07 16:29] LABS: ABNORMAL IP MESSAGE 1; BASOPHILS % 0.4 % (0.0-2.0); EOSINOPHILS # 0.2 10^3/ul (0.0-0.5); EOSINOPHILS % 2.9 % (0.0-7.0); HEMOGLOBIN 8.2 g/dl (12.0-16.0); LYMPHOCYTES # 1.8 10^3/ul (0.8-2.9); LYMPHOCYTES % 36.1 % (15.0-51.0); MEAN CORPUSCULAR HEMOGLOBIN 30.8 pg (29.0-33.0); MEAN CORPUSCULAR HGB CONC 32.8 g/dl (32.0-37.0); MEAN PLATELET VOLUME 11.3 fl (7.4-10.4); MONOCYTE # 0.4 10^3/ul (0.3-0.9); MONOCYTES % 7.7 % (0.0-11.0); NEUTROPHIL # 2.7 10^3/ul (1.6-7.5); NEUTROPHILS % 52.3 % (39.0-77.0); RED BLOOD COUNT 2.66 10^6/ul (4.20-5.40); RED CELL DISTRIBUTION WIDTH 13.8 % (11.5-14.5)
[2019-01-07 16:29] LABS: WHITE BLOOD COUNT 5.1 10^3/ul (4.8-10.8)
[2019-01-07 16:35] LABS: POSITIVE DIFF @See below
[2019-01-07] MEDS: OXYCODONE/ACETAMINOPHEN (10/325) TAB PO (17:21)
[2019-01-07 17:27] LABS: PLATELET COUNT 97 10^3/UL (140-415)
[2019-01-07] MEDS ORDERED: LEVOTHYROXINE 500 MCG VIAL IV (19:00)
[2019-01-07] MEDS: DIPHENHYDRAMINE 50 MG INJ IV (21:33)
[2019-01-07] MEDS: LEVOTHYROXINE 100 MCG VIAL IV (22:05)
[2019-01-07] MEDS: LEVOTHYROXINE 200 MCG VIAL IV (22:05)
[2019-01-07 22:35] LABS: HEPATITIS B SURFACE ANTIGEN NEGATIVE (NEGATIVE)
[2019-01-07 22:37] LABS: HEPATITIS C VIRAL ANTIBODY REACTIVE (NEGATIVE)
[2019-01-08] MEDS: HYDROmorphONE 1 MG/ML SYG IV ×7 (00:38→23:41)
[2019-01-08] MEDS: DIPHENHYDRAMINE 50 MG INJ IV ×8 (01:12→23:41)
[2019-01-08] MEDS: LEVOTHYROXINE 100 MCG TAB PO (06:49)
[2019-01-08] MEDS ORDERED: LEVOTHYROXINE 125 MCG TAB PO (07:00)
[2019-01-08] MEDS ORDERED: LEVOTHYROXINE 100 MCG TAB PO (07:00)
[2019-01-08 07:22] LABS: ADD MAN DIFF? NO
[2019-01-08 07:23] LABS: ABNORMAL IP MESSAGE 1; BASOPHILS % 0.5 % (0.0-2.0); EOSINOPHILS # 0.1 10^3/ul (0.0-0.5); HEMATOCRIT 24.8 % (37.0-47.0); HEMOGLOBIN 8.4 g/dl (12.0-16.0); LYMPHOCYTES # 1.9 10^3/ul (0.8-2.9); LYMPHOCYTES % 34.1 % (15.0-51.0); MEAN CORPUSCULAR HEMOGLOBIN 30.5 pg (29.0-33.0); MEAN CORPUSCULAR HGB CONC 33.9 g/dl (32.0-37.0); MEAN CORPUSCULAR VOLUME 90.2 fl (82.0-101.0); MEAN PLATELET VOLUME 11.7 fl (7.4-10.4); MONOCYTE # 0.6 10^3/ul (0.3-0.9); MONOCYTES % 10.6 % (0.0-11.0); NEUTROPHIL # 2.9 10^3/ul (1.6-7.5); NEUTROPHILS % 52.4 % (39.0-77.0); PLATELET COUNT 67 10^3/UL (140-415); RED BLOOD COUNT 2.75 10^6/ul (4.20-5.40); RED CELL DISTRIBUTION WIDTH 13.7 % (11.5-14.5)
[2019-01-08 07:23] LABS: WHITE BLOOD COUNT 5.6 10^3/ul (4.8-10.8)
[2019-01-08 07:26] LABS: POSITIVE DIFF @See below
[2019-01-08 07:44] LABS: MAGNESIUM 1.8 mg/dl (1.7-2.5)
[2019-01-08 07:44] LABS: ANION GAP 8 (5-13); BLOOD UREA NITROGEN 6 mg/dl (7-20); CALCIUM 8.3 mg/dl (8.4-10.2); CARBON DIOXIDE 24 mmol/L (21-31); CHLORIDE 111 mmol/L (97-110); CREATININE 1.03 mg/dl (0.44-1.00); Estimated GFR > 60 mL/min (>60); GLUCOSE 130 mg/dl (70-220); POTASSIUM 3.6 mmol/L (3.5-5.1); SODIUM 143 mmol/L (135-144)
[2019-01-08] MEDS: CHOLECALCIFEROL 1,000 UNIT TAB PO (07:47)
[2019-01-08] MEDS: LIOTHYRONINE 5 MCG TAB PO (10:45)
[2019-01-08] MEDS: SOD CHLORIDE 0.9% 1,000 ML IV ×2 (14:00→17:30)
[2019-01-08] MEDS: CYANOCOBALAMIN 1000 MCG INJ IM (17:03)
[2019-01-08] MEDS: DIPHENHYDRAMINE 50 MG CAP PO (21:52)
[2019-01-08] MEDS: OXYCODONE/ACETAMINOPHEN (10/325) TAB PO (21:52)
[2019-01-08] MEDS: IMMUNE GLOBULIN IVPB (22:44)
[2019-01-08] MEDS: IMMUNE GLOBUL IVPB (22:44)
[2019-01-08] MEDS: EVAC CONTAINER IVPB (22:44)
[2019-01-08] MEDS: IGA AVG IVPB (22:44)
[2019-01-08] MEDS: GLY IVPB (22:44)
[2019-01-09] MEDS: SOD CHLORIDE 0.9% 1,000 ML IV ×3 (03:30→23:30)
[2019-01-09] MEDS: HYDROmorphONE 1 MG/ML SYG IV ×6 (03:37→21:31)
[2019-01-09] MEDS: DIPHENHYDRAMINE 50 MG INJ IV ×3 (04:30→12:30)
[2019-01-09 06:49] LABS: ADD MAN DIFF? NO
[2019-01-09 06:52] LABS: ABNORMAL IP MESSAGE 1; BASOPHILS % 0.7 % (0.0-2.0); EOSINOPHILS # 0.1 10^3/ul (0.0-0.5); EOSINOPHILS % 2.5 % (0.0-7.0); HEMATOCRIT 22.7 % (37.0-47.0); HEMOGLOBIN 8.1 g/dl (12.0-16.0); LYMPHOCYTES # 1.9 10^3/ul (0.8-2.9); LYMPHOCYTES % 33.7 % (15.0-51.0); MEAN CORPUSCULAR HEMOGLOBIN 33.1 pg (29.0-33.0); MEAN CORPUSCULAR HGB CONC 35.7 g/dl (32.0-37.0); MEAN CORPUSCULAR VOLUME 92.7 fl (82.0-101.0); MEAN PLATELET VOLUME 12.6 fl (7.4-10.4); MONOCYTE # 0.5 10^3/ul (0.3-0.9); PLATELET COUNT 60 10^3/UL (140-415); RED BLOOD COUNT 2.45 10^6/ul (4.20-5.40); RED CELL DISTRIBUTION WIDTH 13.9 % (11.5-14.5)
[2019-01-09 06:52] LABS: WHITE BLOOD COUNT 5.6 10^3/ul (4.8-10.8)
[2019-01-09] MEDS: LEVOTHYROXINE 100 MCG TAB PO (06:53)
[2019-01-09 06:54] LABS: POSITIVE DIFF @See below
[2019-01-09] MEDS: LIOTHYRONINE 5 MCG TAB PO (08:57)
[2019-01-09] MEDS: CHOLECALCIFEROL 1,000 UNIT TAB PO (08:57)
[2019-01-09] MEDS: CYANOCOBALAMIN 500 MCG TAB PO (08:58)
[2019-01-09] MEDS: GLY IVPB (13:32)
[2019-01-09] MEDS: IMMUNE GLOBUL IVPB (13:32)
[2019-01-09] MEDS: EVAC CONTAINER IVPB (13:32)
[2019-01-09] MEDS: IGA AVG IVPB (13:32)
[2019-01-09] MEDS: IMMUNE GLOBULIN IVPB (13:32)
[2019-01-09] MEDS: ONDANSETRON 4 MG INJ IV (18:15)
[2019-01-10] MEDS: HYDROmorphONE 1 MG/ML SYG IV ×3 (01:43→09:07)
[2019-01-10] MEDS: LEVOTHYROXINE 100 MCG TAB PO (06:51)
[2019-01-10] MEDS: LIOTHYRONINE 5 MCG TAB PO (09:01)
[2019-01-10] MEDS: CHOLECALCIFEROL 1,000 UNIT TAB PO (09:02)
[2019-01-10] MEDS: SOD CHLORIDE 0.9% 1,000 ML IV (09:02)
[2019-01-10] MEDS: CYANOCOBALAMIN 500 MCG TAB PO (09:02)
[2019-01-10 12:39] LABS: ADD MAN DIFF? NO
[2019-01-10 12:47] LABS: BASOPHIL # 0.1 10^3/ul (0.0-0.1); BASOPHILS % 0.8 % (0.0-2.0); EOSINOPHILS % 0.4 % (0.0-7.0); HEMATOCRIT 24.9 % (37.0-47.0); HEMOGLOBIN 8.5 g/dl (12.0-16.0); LYMPHOCYTES # 2.1 10^3/ul (0.8-2.9); MEAN CORPUSCULAR HEMOGLOBIN 31.4 pg (29.0-33.0); MEAN CORPUSCULAR HGB CONC 34.1 g/dl (32.0-37.0); MEAN CORPUSCULAR VOLUME 91.9 fl (82.0-101.0); MEAN PLATELET VOLUME 12.6 fl (7.4-10.4); MONOCYTE # 0.9 10^3/ul (0.3-0.9); NEUTROPHIL # 4.6 10^3/ul (1.6-7.5); NEUTROPHILS % 58.4 % (39.0-77.0); NUCLEATED RED BLOOD CELLS% 0.4 /100WBC (0.0-0.0); PLATELET COUNT 100 10^3/UL (140-415); RED BLOOD COUNT 2.71 10^6/ul (4.20-5.40); RED CELL DISTRIBUTION WIDTH 14.2 % (11.5-14.5)
[2019-01-10 12:47] LABS: WHITE BLOOD COUNT 7.8 10^3/ul (4.8-10.8)
== END 2019-01-10 13:25 | disposition home or self-care (01) | DRG 813 ==
LOC: TEL 01-09 01:39 → E/R 12:51 → TEL 17:14
PROC: 30233R1 Transfusion of Nonautologous Platelets into Peripheral Vein, Percutaneous Approach (ICD-10-PCS; principal; 2019-01-07)
DX: D69.3 Immune thrombocytopenic purpura (principal); M32.9 Systemic lupus erythematosus, unspecified; D57.1 Sickle-cell disease without crisis; E03.9 Hypothyroidism, unspecified; E53.8 Deficiency of other specified B group vitamins; Z86.711 Personal history of pulmonary embolism; G89.29 Other chronic pain; G43.009 Migraine without aura, not intractable, without status migrainosus
CPT/HCPCS: 36430; 80048; 80053; 82607; 83735; 84439; 84443; 85025; 85045; 85610; 85730; 86644; 86803; 86850; 86900; 86901; 86945; 87340; 96374; 96375; 99285-25

== ENCOUNTER 2019-01-21 06:23 | Inpatient (IN) | payer OTHER ==
[2019-01-21] MEDS: SOD CHLORIDE 0.9% 0 ML IV (07:00)
[2019-01-21 07:35] LABS: ABNORMAL IP MESSAGE 1; HEMATOCRIT 21.2 % (37.0-47.0); MEAN CORPUSCULAR HEMOGLOBIN 31.7 pg (29.0-33.0); MEAN CORPUSCULAR VOLUME 95.9 fl (82.0-101.0); RED BLOOD COUNT 2.21 10^6/ul (4.20-5.40); RED CELL DISTRIBUTION WIDTH 21.1 % (11.5-14.5); RETICULOCYTE COUNT # 0.187 X10^6 (0.020-0.110); RETICULOCYTE COUNT % 8.5 % (0.5-1.5); RETICULOCYTE RBC 2.21
[2019-01-21 07:35] LABS: WHITE BLOOD COUNT 7.9 10^3/ul (4.8-10.8)
[2019-01-21 07:39] LABS: POSITIVE DIFF @See below
[2019-01-21] MEDS: SOD CHLORIDE 0.9% 1,000 ML IV (07:42)
[2019-01-21] MEDS: HYDROmorphONE 1 MG/ML SYG IV ×4 (07:42→22:44)
[2019-01-21] MEDS: DIPHENHYDRAMINE 50 MG INJ IV ×3 (07:42→12:11)
[2019-01-21] MEDS: ONDANSETRON 4 MG INJ IV (07:42)
[2019-01-21 07:43] LABS: ADD MAN DIFF? YES
[2019-01-21 07:57] LABS: ALANINE AMINOTRANSFERASE 15 IU/L (13-69); ALKALINE PHOSPHATASE 71 IU/L (42-121); ANION GAP 8 (5-13); ASPARTATE AMINO TRANSFERASE 34 IU/L (15-46); BILIRUBIN,INDIRECT 0.8 mg/dl (0-1.1); BILIRUBIN,TOTAL 0.8 mg/dl (0.2-1.3); BLOOD UREA NITROGEN 10 mg/dl (7-20); CALCIUM 9.1 mg/dl (8.4-10.2); CARBON DIOXIDE 28 mmol/L (21-31); CHLORIDE 107 mmol/L (97-110); CREATININE 0.98 mg/dl (0.44-1.00); Estimated GFR > 60 mL/min (>60); GLUCOSE 109 mg/dl (70-220); INR 0.94; POTASSIUM 3.6 mmol/L (3.5-5.1); PROTIME 12.7 Sec (11.9-14.9); SODIUM 143 mmol/L (135-144)
[2019-01-21 07:58] LABS: ALBUMIN 4.3 g/dl (3.3-4.9); ALBUMIN/GLOBULIN RATIO 0.65; PARTIAL THROMBOPLASTIN TIME 29.7 Sec (23.0-35.0); TOTAL PROTEIN 10.9 g/dl (6.1-8.1)
[2019-01-21 07:59] LABS: URINE BLOOD (Dip) POC Negative (NEGATIVE); URINE GLUCOSE (Dip) POC Negative (NEGATIVE); URINE KETONES (Dip) POC Negative (NEGATIVE); URINE LEUKOCYTE EST (Dip) POC Negative (NEGATIVE); URINE NITRITE (Dip) POC Negative (NEGATIVE); URINE TOTAL PROTEIN POC Negative (NEGATIVE)
[2019-01-21 07:59] LABS: URINE PH (Dip) POC 6.5 (5.0-8.5)
[2019-01-21] MEDS ORDERED: IMMUNE GLOBULIN (HUMAN) 6 GM INJ IV (08:40)
[2019-01-21] MEDS ORDERED: ONDANSETRON 4 MG INJ IV (09:00)
[2019-01-21] MEDS ORDERED: ACETAMINOPHEN 325 MG TAB PO (09:00)
[2019-01-21 09:22] LABS: BAND NEUTROPHILS #M 0.3 10^3/ul (0.0-0.6); BAND NEUTROPHILS % (M) 4 % (0-4); EOSINOPHILS % (M) 1 % (0-7); ERYTHROBLAST% (NRBC) (M) 1 % (0-0); GIANT THROMBO% (M) 1 % (0-0); LYMPHOCYTES #M 2.7 10^3/ul (0.8-2.9); LYMPHOCYTES % (M) 35 % (15-51); MONOCYTE #M 0.9 10^3/ul (0.3-0.9); MONOCYTES % (M) 12 % (0-11); SEG NEUT #M 3.8 10^3/ul (1.6-7.5); SEGMENTED NEUTROPHILS (M) % 48 % (39-77); SMUDGE%M 9 % (0-0)
[2019-01-21 09:26] LABS: PLATELET COUNT 2 10^3/UL (140-415)
[2019-01-21 09:27] LABS: PATH REVIEW Y
[2019-01-21 09:54] LABS: TYPE AND SCREEN 1
[2019-01-21] MEDS: IGA AVG IVPB (12:09)
[2019-01-21] MEDS: IMMUNE GLOBULIN IVPB (12:09)
[2019-01-21] MEDS: GLY IVPB (12:09)
[2019-01-21] MEDS: IMMUNE GLOBUL IVPB (12:09)
[2019-01-21] MEDS: [UNRECOGNIZED DRUG - OTHER] IVPB (12:09)
[2019-01-21] MEDS: morphine 2 MG INJ IV (12:10)
[2019-01-22] MEDS: DIPHENHYDRAMINE 25 MG CAP PO (02:04)
[2019-01-22] MEDS: HYDROmorphONE 1 MG/ML SYG IV ×7 (02:04→21:58)
[2019-01-22 06:24] LABS: ADD MAN DIFF? NO
[2019-01-22 06:27] LABS: ABNORMAL IP MESSAGE 1; BASOPHIL # 0.1 10^3/ul (0.0-0.1); BASOPHILS % 0.7 % (0.0-2.0); EOSINOPHILS # 0.2 10^3/ul (0.0-0.5); EOSINOPHILS % 2.1 % (0.0-7.0); HEMATOCRIT 20.4 % (37.0-47.0); LYMPHOCYTES # 2.1 10^3/ul (0.8-2.9); LYMPHOCYTES % 27.9 % (15.0-51.0); MEAN CORPUSCULAR HEMOGLOBIN 32.4 pg (29.0-33.0); MEAN CORPUSCULAR HGB CONC 32.8 g/dl (32.0-37.0); MEAN CORPUSCULAR VOLUME 98.6 fl (82.0-101.0); MEAN PLATELET VOLUME 10.8 fl (7.4-10.4); MONOCYTES % 12.8 % (0.0-11.0); NEUTROPHILS % 52.4 % (39.0-77.0); NUCLEATED RED BLOOD CELLS # 0.3 10^3/ul (0.0-0.0); NUCLEATED RED BLOOD CELLS% 4.4 /100WBC (0.0-0.0); RED BLOOD COUNT 2.07 10^6/ul (4.20-5.40)
[2019-01-22 06:27] LABS: WHITE BLOOD COUNT 7.6 10^3/ul (4.8-10.8)
[2019-01-22 06:42] LABS: PLATELET COUNT 30 10^3/UL (140-415); POSITIVE DIFF @See below
[2019-01-22 06:44] LABS: HEMOGLOBIN 6.7 g/dl (12.0-16.0)
[2019-01-22] MEDS ORDERED: IMMUNE GLOBULIN (HUMAN) 6 GM INJ IV (08:00)
[2019-01-22 08:20] LABS: BAND NEUTROPHILS #M 0.5 10^3/ul (0.0-0.6); BAND NEUTROPHILS % (M) 7 % (0-4); EOSINOPHILS % (M) 8 % (0-7); ERYTHROBLAST% (NRBC) (M) 3 % (0-0); GIANT THROMBO% (M) 3 % (0-0); LYMPHOCYTES #M 1.5 10^3/ul (0.8-2.9); LYMPHOCYTES % (M) 20 % (15-51); MONOCYTE #M 0.4 10^3/ul (0.3-0.9); MONOCYTES % (M) 6 % (0-11); MYELOCYTES #M 0.1 10^3/ul (0.0-0.0); MYELOCYTES % (M) 2 % (0-0); REACTIVE LYMPHOCYTES #M 0.1 10^3/ul (0.0-0.0); REACTIVE LYMPHOCYTES% (M) 2 % (0-0); SEG NEUT #M 4.2 10^3/ul (1.6-7.5); SEGMENTED NEUTROPHILS (M) % 55 % (39-77); SMUDGE%M 6 % (0-0)
[2019-01-22] MEDS: DIPHENHYDRAMINE 50 MG INJ IV ×3 (08:39→21:53)
[2019-01-22] MEDS: SOD CHLORIDE 0.9% 250 ML IV* (09:00)
[2019-01-22 09:23] LABS: IMMEDIATE SPIN CROSSMATCH 1 2
[2019-01-22] MEDS ORDERED: predniSONE 20 MG TAB PO (11:00)
[2019-01-22] MEDS ORDERED: IMMUNE GLOBULIN IVPB (12:00)
[2019-01-22] MEDS ORDERED: IMMUNE GLOBUL IVPB (12:00)
[2019-01-22] MEDS ORDERED: IGA AVG IVPB (12:00)
[2019-01-22] MEDS ORDERED: [UNRECOGNIZED DRUG - OTHER] IVPB (12:00)
[2019-01-22] MEDS ORDERED: GLY IVPB (12:00)
[2019-01-22] MEDS: DOCUSATE SODIUM 100 MG CAP PO (12:41)
[2019-01-22] MEDS: DEXAMETHASONE 4 MG TAB PO (12:44)
[2019-01-22] MEDS: [UNRECOGNIZED DRUG - OTHER] IVPB (18:34)
[2019-01-22] MEDS: IMMUNE GLOBUL IVPB (18:34)
[2019-01-22] MEDS: GLY IVPB (18:34)
[2019-01-22] MEDS: IGA AVG IVPB (18:34)
[2019-01-22] MEDS: IMMUNE GLOBULIN IVPB (18:34)
[2019-01-23] MEDS: ONDANSETRON 4 MG INJ IV ×3 (00:13→17:54)
[2019-01-23] MEDS: ZOLPIDEM 5 MG TAB PO (00:24)
[2019-01-23] MEDS: HYDROmorphONE 1 MG/ML SYG IV ×8 (00:48→20:15)
[2019-01-23] MEDS: DOCUSATE SODIUM 100 MG CAP PO (05:59)
[2019-01-23] MEDS: SENNA TAB PO ×2 (05:59→17:54)
[2019-01-23] MEDS: PANTOPRAZOLE (EC) 40 MG TAB PO (05:59)
[2019-01-23] MEDS: POLYETHYLENE GLYCOL 17 GM PACKET PO (06:38)
[2019-01-23 06:58] LABS: ABNORMAL IP MESSAGE 1; HEMATOCRIT 34.7 % (37.0-47.0); MEAN CORPUSCULAR HEMOGLOBIN 31.4 pg (29.0-33.0); MEAN CORPUSCULAR HGB CONC 32.3 g/dl (32.0-37.0); MEAN CORPUSCULAR VOLUME 97.2 fl (82.0-101.0); MEAN PLATELET VOLUME 11.8 fl (7.4-10.4); NUCLEATED RED BLOOD CELLS% 3.3 /100WBC (0.0-0.0); RED BLOOD COUNT 3.57 10^6/ul (4.20-5.40); RED CELL DISTRIBUTION WIDTH 21.1 % (11.5-14.5)
[2019-01-23 06:58] LABS: WHITE BLOOD COUNT 10.9 10^3/ul (4.8-10.8)
[2019-01-23 07:16] LABS: PLATELET COUNT 27 10^3/UL (140-415); POSITIVE DIFF @See below
[2019-01-23 07:18] LABS: ADD MAN DIFF? YES; HEMOGLOBIN 11.2 g/dl (12.0-16.0)
[2019-01-23] MEDS: DEXAMETHASONE 4 MG TAB PO (08:07)
[2019-01-23 10:22] LABS: ANISOCYTOSIS 2+ (0-0); BAND NEUTROPHILS #M 0.4 10^3/ul (0.0-0.6); BAND NEUTROPHILS % (M) 4 % (0-4); ERYTHROBLAST% (NRBC) (M) 4 % (0-0); LYMPHOCYTES #M 1.1 10^3/ul (0.8-2.9); LYMPHOCYTES % (M) 11 % (15-51); METAMYELOCYTES #M 0.1 10^3/ul (0.0-0.0); METAMYELOCYTES %M 1 % (0-0); MONOCYTE #M 0.1 10^3/ul (0.3-0.9); MONOCYTES % (M) 1 % (0-11); MYELOCYTES #M 0.1 10^3/ul (0.0-0.0); MYELOCYTES % (M) 1 % (0-0); PLATELET ESTIMATE SIG DECREASED; POLYCHROMASIA 2+ (0-0); REACTIVE LYMPHOCYTES #M 0.1 10^3/ul (0.0-0.0); REACTIVE LYMPHOCYTES% (M) 1 % (0-0); ROULEAU 1+ (0-0); SEG NEUT #M 8.9 10^3/ul (1.6-7.5); SEGMENTED NEUTROPHILS (M) % 81 % (39-77); SMUDGE%M 2 % (0-0)
[2019-01-23] MEDS: DIPHENHYDRAMINE 50 MG INJ IV (14:58)
[2019-01-24] MEDS: ONDANSETRON 4 MG INJ IV ×2 (05:29→10:11)
[2019-01-24] MEDS: DOCUSATE SODIUM 100 MG CAP PO (05:31)
[2019-01-24] MEDS: PANTOPRAZOLE (EC) 40 MG TAB PO (05:31)
[2019-01-24] MEDS: SENNA TAB PO (05:31)
[2019-01-24] MEDS: HYDROmorphONE 1 MG/ML SYG IV ×3 (05:31→10:11)
[2019-01-24 05:41] LABS: ADD MAN DIFF? NO
[2019-01-24 05:43] LABS: ABNORMAL IP MESSAGE 1; BASOPHILS % 0.1 % (0.0-2.0); HEMATOCRIT 31.8 % (37.0-47.0); HEMOGLOBIN 10.2 g/dl (12.0-16.0); LYMPHOCYTES # 0.6 10^3/ul (0.8-2.9); LYMPHOCYTES % 2.7 % (15.0-51.0); MEAN CORPUSCULAR HEMOGLOBIN 31.1 pg (29.0-33.0); MEAN CORPUSCULAR HGB CONC 32.1 g/dl (32.0-37.0); MEAN PLATELET VOLUME 13.6 fl (7.4-10.4); MONOCYTE # 1.7 10^3/ul (0.3-0.9); MONOCYTES % 7.4 % (0.0-11.0); NEUTROPHIL # 20.1 10^3/ul (1.6-7.5); NEUTROPHILS % 88.2 % (39.0-77.0); NUCLEATED RED BLOOD CELLS # 0.4 10^3/ul (0.0-0.0); NUCLEATED RED BLOOD CELLS% 1.8 /100WBC (0.0-0.0); PLATELET COUNT 39 10^3/UL (140-415); RED BLOOD COUNT 3.28 10^6/ul (4.20-5.40); RED CELL DISTRIBUTION WIDTH 20.6 % (11.5-14.5)
[2019-01-24 05:43] LABS: WHITE BLOOD COUNT 22.8 10^3/ul (4.8-10.8)
[2019-01-24 05:46] LABS: POSITIVE DIFF @See below
[2019-01-24] MEDS: DEXAMETHASONE 4 MG TAB PO (10:11)
[2019-01-24] MEDS: POLYETHYLENE GLYCOL 17 GM PACKET PO (10:11)
== END 2019-01-24 13:25 | disposition home or self-care (01) | DRG 813 ==
LOC: E/R 06:23 → PP2 08:34
PROC: 30233R1 Transfusion of Nonautologous Platelets into Peripheral Vein, Percutaneous Approach (ICD-10-PCS; principal; 2019-01-21)
PROC: 30233S1 Transfusion of Nonautologous Globulin into Peripheral Vein, Percutaneous Approach (ICD-10-PCS; 2019-01-21)
PROC: 30233N1 Transfusion of Nonautologous Red Blood Cells into Peripheral Vein, Percutaneous Approach (ICD-10-PCS; 2019-01-22)
DX: D69.3 Immune thrombocytopenic purpura (principal); D57.00 Hb-SS disease with crisis, unspecified; E03.9 Hypothyroidism, unspecified; G89.4 Chronic pain syndrome
CPT/HCPCS: 36415; 36430; 80053; 81003; 81025; 85025; 85045; 85610; 85730; 86850; 86900; 86901; 86920; 96374; 96375; 99285-25; J1566

== ENCOUNTER 2019-01-27 19:23 | Emergency (ER) | payer OTHER ==
[2019-01-27 22:15] LABS: ADD MAN DIFF? NO
[2019-01-27 22:17] LABS: ABNORMAL IP MESSAGE 1; BASOPHILS % 0.1 % (0.0-2.0); EOSINOPHILS # 0.1 10^3/ul (0.0-0.5); EOSINOPHILS % 0.6 % (0.0-7.0); HEMATOCRIT 32.2 % (37.0-47.0); HEMOGLOBIN 10.5 g/dl (12.0-16.0); LYMPHOCYTES # 2.9 10^3/ul (0.8-2.9); LYMPHOCYTES % 26.3 % (15.0-51.0); MEAN CORPUSCULAR HEMOGLOBIN 31.3 pg (29.0-33.0); MEAN CORPUSCULAR HGB CONC 32.6 g/dl (32.0-37.0); MEAN CORPUSCULAR VOLUME 96.1 fl (82.0-101.0); MEAN PLATELET VOLUME 12.9 fl (7.4-10.4); MONOCYTE # 0.9 10^3/ul (0.3-0.9); MONOCYTES % 8.6 % (0.0-11.0); NEUTROPHIL # 6.9 10^3/ul (1.6-7.5); NEUTROPHILS % 63.6 % (39.0-77.0); NUCLEATED RED BLOOD CELLS # 0.1 10^3/ul (0.0-0.0); NUCLEATED RED BLOOD CELLS% 0.9 /100WBC (0.0-0.0); PLATELET COUNT 46 10^3/UL (140-415); RED BLOOD COUNT 3.35 10^6/ul (4.20-5.40); RED CELL DISTRIBUTION WIDTH 18.8 % (11.5-14.5)
[2019-01-27 22:17] LABS: WHITE BLOOD COUNT 10.8 10^3/ul (4.8-10.8)
[2019-01-27 22:18] LABS: POSITIVE DIFF @See below
[2019-01-27 22:21] LABS: ADD UMIC YES; UR ASCORBIC ACID NEGATIVE (NEGATIVE); UR BILIRUBIN (Dip) NEGATIVE (NEGATIVE); UR BLOOD (Dip) 3+ mg/dL (NEGATIVE); UR CLARITY CLEAR (CLEAR); UR COLOR YELLOW (YELLOW); UR GLUCOSE (Dip) NEGATIVE (NEGATIVE); UR KETONES (Dip) NEGATIVE (NEGATIVE); UR LEUKOCYTE ESTERASE (Dip) NEGATIVE Leu/ul (NEGATIVE); UR NITRITE (Dip) NEGATIVE (NEGATIVE); UR RBC 1 /HPF (0-5); UR SPECIFIC GRAVITY (Dip) 1.013 (1.003-1.030); UR SQUAMOUS EPITHELIAL CELL FEW /HPF (FEW); UR TOTAL PROTEIN (Dip) NEGATIVE (NEGATIVE); UR UROBILINOGEN (Dip) 1+ mg/dL (NEGATIVE); UR WBC 0 /HPF (0-5)
[2019-01-27] MEDS: HYDROmorphONE 1 MG/ML SYG IV (22:31)
[2019-01-27] MEDS: DIPHENHYDRAMINE 50 MG INJ IV (22:31)
[2019-01-27 22:35] LABS: ANION GAP 6 (5-13); BLOOD UREA NITROGEN 17 mg/dl (7-20); CALCIUM 9.6 mg/dl (8.4-10.2); CARBON DIOXIDE 31 mmol/L (21-31); CHLORIDE 103 mmol/L (97-110); CREATININE 0.93 mg/dl (0.44-1.00); Estimated GFR > 60 mL/min (>60); GLUCOSE 92 mg/dl (70-220); POTASSIUM 4.4 mmol/L (3.5-5.1); SODIUM 140 mmol/L (135-144)
[2019-01-27 22:36] LABS: INR 0.93; PROTIME 12.6 Sec (11.9-14.9)
[2019-01-27 22:37] LABS: PARTIAL THROMBOPLASTIN TIME 27.2 Sec (23.0-35.0)
== END 2019-01-28 01:45 | disposition home or self-care (01) ==
LOC: E/R 01-28 01:45
DX: N93.9 Abnormal uterine and vaginal bleeding, unspecified (principal)
CPT/HCPCS: 36415; 76830; 76856; 80048; 81001; 84703; 85025; 85610; 85730; 86850; 86900; 86901; 96374; 96375; 99285-25

== ENCOUNTER 2019-02-04 21:56 | Inpatient (IN) | payer OTHER ==
[2019-02-05 01:42] LABS: ADD MAN DIFF? NO
[2019-02-05 01:46] LABS: ABNORMAL IP MESSAGE 1; BASOPHIL # 0.1 10^3/ul (0.0-0.1); BASOPHILS % 0.8 % (0.0-2.0); EOSINOPHILS # 0.2 10^3/ul (0.0-0.5); EOSINOPHILS % 2.1 % (0.0-7.0); HEMATOCRIT 31.1 % (37.0-47.0); HEMOGLOBIN 10.4 g/dl (12.0-16.0); LYMPHOCYTES # 2.4 10^3/ul (0.8-2.9); LYMPHOCYTES % 26.5 % (15.0-51.0); MEAN CORPUSCULAR HEMOGLOBIN 32.5 pg (29.0-33.0); MEAN CORPUSCULAR HGB CONC 33.4 g/dl (32.0-37.0); MEAN CORPUSCULAR VOLUME 97.2 fl (82.0-101.0); MONOCYTE # 0.9 10^3/ul (0.3-0.9); MONOCYTES % 10.5 % (0.0-11.0); NEUTROPHIL # 5.3 10^3/ul (1.6-7.5); NEUTROPHILS % 59.5 % (39.0-77.0); RED CELL DISTRIBUTION WIDTH 17.5 % (11.5-14.5)
[2019-02-05 02:01] LABS: PLATELET COUNT 2 10^3/UL (140-415); POSITIVE DIFF @See below
[2019-02-05] MEDS: morphine 10 MG INJ IV (03:35)
[2019-02-05] MEDS ORDERED: ACETAMINOPHEN 325 MG TAB PO (04:00)
[2019-02-05] MEDS ORDERED: ONDANSETRON 4 MG INJ IV (04:00)
[2019-02-05 05:59] LABS: TYPE AND SCREEN 1 1
[2019-02-05] MEDS: SOD CHLORIDE 0.9% 0 ML IV (06:15)
[2019-02-05] MEDS: DEXAMETHASONE 10 MG/ML 1 ML INJ IV (06:23)
[2019-02-05] MEDS ORDERED: ACETAMINOPHEN 500 MG TAB PO (07:30)
[2019-02-05] MEDS: morphine 4 MG/ML VIAL IV (08:40)
[2019-02-05] MEDS: DOCUSATE SODIUM 100 MG CAP PO ×2 (09:00→20:08)
[2019-02-05] MEDS ORDERED: IMMUNE GLOBULIN (HUMAN) 6 GM INJ IV (09:00)
[2019-02-05] MEDS: HYDROmorphONE 2 MG/ML SYG IV ×4 (09:34→21:43)
[2019-02-05 09:54] LABS: ADD MAN DIFF? NO
[2019-02-05 09:58] LABS: WHITE BLOOD COUNT 16.5 10^3/ul (4.8-10.8)
[2019-02-05 09:58] LABS: ABNORMAL IP MESSAGE 1; BASOPHIL # 0.1 10^3/ul (0.0-0.1); BASOPHILS % 0.4 % (0.0-2.0); EOSINOPHILS # 0.1 10^3/ul (0.0-0.5); EOSINOPHILS % 0.9 % (0.0-7.0); HEMATOCRIT 27.2 % (37.0-47.0); HEMOGLOBIN 9.2 g/dl (12.0-16.0); LYMPHOCYTES # 1.3 10^3/ul (0.8-2.9); MEAN CORPUSCULAR HEMOGLOBIN 31.9 pg (29.0-33.0); MEAN CORPUSCULAR HGB CONC 33.8 g/dl (32.0-37.0); MEAN CORPUSCULAR VOLUME 94.4 fl (82.0-101.0); MEAN PLATELET VOLUME 9.3 fl (7.4-10.4); MONOCYTE # 0.6 10^3/ul (0.3-0.9); MONOCYTES % 3.5 % (0.0-11.0); NEUTROPHIL # 14.3 10^3/ul (1.6-7.5); NEUTROPHILS % 86.4 % (39.0-77.0); PLATELET COUNT 74 10^3/UL (140-415); RED BLOOD COUNT 2.88 10^6/ul (4.20-5.40)
[2019-02-05 09:59] LABS: POSITIVE DIFF @See below
[2019-02-05] MEDS ORDERED: DIPHENHYDRAMINE 50 MG CAP PO (10:00)
[2019-02-05 10:42] LABS: FREE T4 (FREE THYROXINE) 0.28 ng/dl (0.79-2.35)
[2019-02-05] MEDS: ONDANSETRON 4 MG INJ IV (12:44)
[2019-02-05] MEDS: DIPHENHYDRAMINE 50 MG INJ IV ×2 (14:26→21:42)
[2019-02-05] MEDS: DEXAMETHASONE 4 MG TAB PO (14:27)
[2019-02-05] MEDS: GLY IVPB (14:33)
[2019-02-05] MEDS: EVAC CONTAINER IVPB (14:33)
[2019-02-05] MEDS: IMMUNE GLOBUL IVPB (14:33)
[2019-02-05] MEDS: IGA AVG IVPB (14:33)
[2019-02-05] MEDS: LIOTHYRONINE 5 MCG TAB PO (16:51)
[2019-02-05] MEDS ORDERED: DEXAMETHASONE 4 MG TAB PO (20:00)
[2019-02-06] MEDS: ONDANSETRON 4 MG INJ IV (04:47)
[2019-02-06] MEDS: HYDROmorphONE 2 MG/ML SYG IV ×4 (04:47→19:51)
[2019-02-06 06:25] LABS: ADD MAN DIFF? NO
[2019-02-06] MEDS: LEVOTHYROXINE 100 MCG TAB PO ×2 (06:38→22:28)
[2019-02-06] MEDS: PANTOPRAZOLE (EC) 40 MG TAB PO (06:38)
[2019-02-06 06:43] LABS: WHITE BLOOD COUNT 18.7 10^3/ul (4.8-10.8)
[2019-02-06 06:43] LABS: ABNORMAL IP MESSAGE 1; BASOPHILS % 0.1 % (0.0-2.0); HEMATOCRIT 26.5 % (37.0-47.0); HEMOGLOBIN 8.8 g/dl (12.0-16.0); LYMPHOCYTES # 0.9 10^3/ul (0.8-2.9); LYMPHOCYTES % 4.8 % (15.0-51.0); MEAN CORPUSCULAR HEMOGLOBIN 31.9 pg (29.0-33.0); MEAN CORPUSCULAR HGB CONC 33.2 g/dl (32.0-37.0); MEAN PLATELET VOLUME 11.1 fl (7.4-10.4); MONOCYTE # 0.5 10^3/ul (0.3-0.9); MONOCYTES % 2.5 % (0.0-11.0); NEUTROPHIL # 16.8 10^3/ul (1.6-7.5); PLATELET COUNT 51 10^3/UL (140-415); RED BLOOD COUNT 2.76 10^6/ul (4.20-5.40); RED CELL DISTRIBUTION WIDTH 17.3 % (11.5-14.5)
[2019-02-06 06:48] LABS: POSITIVE DIFF @See below
[2019-02-06] MEDS: LIOTHYRONINE 5 MCG TAB PO ×2 (08:45→22:28)
[2019-02-06] MEDS: DOCUSATE SODIUM 100 MG CAP PO ×2 (08:45→22:27)
[2019-02-06] MEDS: DIPHENHYDRAMINE 50 MG INJ IV ×3 (08:46→22:27)
[2019-02-06] MEDS ORDERED: DEXAMETHASONE 4 MG TAB PO (09:00)
[2019-02-06] MEDS: DEXAMETHASONE 4 MG TAB PO (09:52)
[2019-02-06] MEDS ORDERED: LEVOTHYROXINE 500 MCG VIAL IV (11:30)
[2019-02-06] MEDS: LEVOTHYROXINE 100 MCG VIAL IV (11:51)
[2019-02-06] MEDS: CYANOCOBALAMIN 1000 MCG INJ SC (15:26)
[2019-02-06] MEDS: IGA AVG IVPB (15:34)
[2019-02-06] MEDS: IMMUNE GLOBUL IVPB (15:34)
[2019-02-06] MEDS: GLY IVPB (15:34)
[2019-02-06] MEDS: EVAC CONTAINER IVPB (15:34)
[2019-02-07] MEDS: HYDROmorphONE 2 MG/ML SYG IV ×5 (00:26→16:29)
[2019-02-07] MEDS: ONDANSETRON 4 MG INJ IV (04:22)
[2019-02-07] MEDS: PANTOPRAZOLE (EC) 40 MG TAB PO (05:25)
[2019-02-07] MEDS: DIPHENHYDRAMINE 50 MG INJ IV ×3 (05:25→12:57)
[2019-02-07 06:05] LABS: ADD MAN DIFF? NO
[2019-02-07 06:14] LABS: WHITE BLOOD COUNT 34.5 10^3/ul (4.8-10.8)
[2019-02-07 06:14] LABS: ABNORMAL IP MESSAGE 1; BASOPHIL # 0.1 10^3/ul (0.0-0.1); BASOPHILS % 0.1 % (0.0-2.0); HEMATOCRIT 26.3 % (37.0-47.0); HEMOGLOBIN 8.3 g/dl (12.0-16.0); LYMPHOCYTES % 2.8 % (15.0-51.0); MEAN CORPUSCULAR HEMOGLOBIN 31.6 pg (29.0-33.0); MEAN CORPUSCULAR HGB CONC 31.6 g/dl (32.0-37.0); MONOCYTE # 1.6 10^3/ul (0.3-0.9); MONOCYTES % 4.5 % (0.0-11.0); NEUTROPHIL # 30.5 10^3/ul (1.6-7.5); NEUTROPHILS % 88.2 % (39.0-77.0); NUCLEATED RED BLOOD CELLS% 0.1 /100WBC (0.0-0.0); PLATELET COUNT 60 10^3/UL (140-415); RED BLOOD COUNT 2.63 10^6/ul (4.20-5.40); RED CELL DISTRIBUTION WIDTH 17.6 % (11.5-14.5)
[2019-02-07 06:15] LABS: POSITIVE DIFF @See below
[2019-02-07] MEDS: LEVOTHYROXINE 100 MCG TAB PO (06:31)
[2019-02-07] MEDS: DOCUSATE SODIUM 100 MG CAP PO (08:40)
[2019-02-07] MEDS: LIOTHYRONINE 5 MCG TAB PO (08:40)
[2019-02-07] MEDS: DEXAMETHASONE 4 MG TAB PO (08:41)
[2019-02-07 09:14] LABS: ANISOCYTOSIS 1+ (0-0); BAND NEUTROPHILS % (M) 3 % (0-4); LYMPHOCYTES #M 1.3 10^3/ul (0.8-2.9); LYMPHOCYTES % (M) 4 % (15-51); MONOCYTE #M 0.6 10^3/ul (0.3-0.9); MONOCYTES % (M) 2 % (0-11); MYELOCYTES #M 0.3 10^3/ul (0.0-0.0); MYELOCYTES % (M) 1 % (0-0); PLATELET ESTIMATE DECREASED; POLYCHROMASIA 3+ (0-0); SEG NEUT #M 31.4 10^3/ul (1.6-7.5); SEGMENTED NEUTROPHILS (M) % 90 % (39-77)
[2019-02-07] MEDS: IMMUNE GLOBUL IVPB (12:55)
[2019-02-07] MEDS: EVAC CONTAINER IVPB (12:55)
[2019-02-07] MEDS: IGA AVG IVPB (12:55)
[2019-02-07] MEDS: GLY IVPB (12:55)
[2019-02-24] MEDS ORDERED: DEXAMETHASONE 4 MG TAB PO (16:00)
== END 2019-02-07 18:04 | disposition home or self-care (01) | DRG 813 ==
LOC: E/R 21:56 → 6WM 02-05 03:42
PROVIDERS: Internal Medicine
PROC: 6A550Z2 Pheresis of Platelets, Single (ICD-10-PCS; principal; 2019-02-05)
DX: D69.3 Immune thrombocytopenic purpura (principal); D57.1 Sickle-cell disease without crisis; E03.9 Hypothyroidism, unspecified
CPT/HCPCS: 36415; 36430; 81025; 82533; 84439; 84443; 85025; 86644; 86850; 86900; 86901; 96374; 99285-25

== ENCOUNTER 2019-02-24 11:01 | Inpatient (IN) | payer OTHER ==
[2019-02-24] MEDS: HYDROmorphONE 2 MG/ML SYG IV (12:46)
[2019-02-24 12:52] LABS: WHITE BLOOD COUNT 8.6 10^3/ul (4.8-10.8)
[2019-02-24 12:52] LABS: ABNORMAL IP MESSAGE 1; HEMATOCRIT 28.9 % (37.0-47.0); HEMOGLOBIN 9.3 g/dl (12.0-16.0); MEAN CORPUSCULAR HEMOGLOBIN 33.5 pg (29.0-33.0); MEAN CORPUSCULAR HGB CONC 32.2 g/dl (32.0-37.0); NUCLEATED RED BLOOD CELLS% 0.7 /100WBC (0.0-0.0); RED BLOOD COUNT 2.78 10^6/ul (4.20-5.40); RED CELL DISTRIBUTION WIDTH 19.5 % (11.5-14.5)
[2019-02-24 13:07] LABS: ANION GAP 7 (5-13); BLOOD UREA NITROGEN 8 mg/dl (7-20); CALCIUM 9.2 mg/dl (8.4-10.2); CARBON DIOXIDE 30 mmol/L (21-31); CHLORIDE 100 mmol/L (97-110); CREATININE 0.89 mg/dl (0.44-1.00); Estimated GFR > 60 mL/min (>60); GLUCOSE 78 mg/dl (70-220); POTASSIUM 3.9 mmol/L (3.5-5.1); SODIUM 137 mmol/L (135-144)
[2019-02-24 13:41] LABS: PLATELET COUNT 1 10^3/UL (140-415)
[2019-02-24 13:42] LABS: ADD MAN DIFF? YES; PATH REVIEW? YES; POSITIVE DIFF @See below
[2019-02-24] MEDS ORDERED: ACETAMINOPHEN 325 MG TAB PO (14:00)
[2019-02-24] MEDS ORDERED: ONDANSETRON 4 MG INJ IV ×2 (14:00→16:00)
[2019-02-24] MEDS: HYDROmorphONE 0.5 MG/0.5 ML SYG IV (14:11)
[2019-02-24] MEDS: DEXAMETHASONE 10 MG/ML 1 ML INJ IV (14:12)
[2019-02-24] MEDS: ONDANSETRON 4 MG INJ IV (14:12)
[2019-02-24 14:14] LABS: ANISOCYTOSIS 1+ (0-0); BAND NEUTROPHILS % (M) 1 % (0-4); EOSINOPHILS % (M) 3 % (0-7); ERYTHROBLAST% (NRBC) (M) 3 % (0-0); LYMPHOCYTES #M 2.4 10^3/ul (0.8-2.9); LYMPHOCYTES % (M) 29 % (15-51); MICROCYTOSIS 1+ (0-0); MONOCYTE #M 0.6 10^3/ul (0.3-0.9); MONOCYTES % (M) 7 % (0-11); MYELOCYTES % (M) 1 % (0-0); PLATELET ESTIMATE SIG DECREASED; RBC MORPHOLOGY COMMENT @See below; ROULEAU 2+ (0-0); SEG NEUT #M 5.1 10^3/ul (1.6-7.5); SEGMENTED NEUTROPHILS (M) % 59 % (39-77); SMUDGE%M 1 % (0-0); WBC MORPHOLOGY COMMENT @See below
[2019-02-24 14:37] LABS: TYPE AND SCREEN 1 1
[2019-02-24] MEDS ORDERED: NACL 0.9% 3 ML SYG IV (16:00)
[2019-02-24] MEDS ORDERED: DOCUSATE SODIUM 100 MG CAP PO (16:00)
[2019-02-24] MEDS: DEXAMETHASONE 4 MG TAB PO (16:30)
[2019-02-24] MEDS ORDERED: GAMUNEX C IV (16:30)
[2019-02-24] MEDS: ACETAMINOPHEN 325 MG TAB PO (16:32)
[2019-02-24 18:13] LABS: FREE T4 (FREE THYROXINE) 0.27 ng/dl (0.79-2.35)
[2019-02-24] MEDS: HYDROmorphONE 1 MG/ML SYG IV ×2 (18:31→21:28)
[2019-02-24] MEDS: DIPHENHYDRAMINE 50 MG INJ IV (19:02)
[2019-02-24] MEDS: LIOTHYRONINE 5 MCG TAB PO (21:01)
[2019-02-24] MEDS: LEVOTHYROXINE 100 MCG TAB PO (21:02)
[2019-02-24] MEDS: FAMOTIDINE 20 MG TAB PO (21:02)
[2019-02-24] MEDS: SOD CHLORIDE 0.9% 0 ML IV (21:12)
[2019-02-24] MEDS: IMMUNE GLOBUL G/GLY/IGA AVG 46 400 ML IV (21:13)
[2019-02-25] MEDS: DIPHENHYDRAMINE 50 MG INJ IV ×3 (01:19→15:35)
[2019-02-25] MEDS: HYDROmorphONE 1 MG/ML SYG IV ×7 (01:20→23:59)
[2019-02-25] MEDS: IMMUNE GLOBUL G/GLY/IGA AVG 46 200 ML IVPB ×2 (01:22→21:59)
[2019-02-25] MEDS: PANTOPRAZOLE 40 MG INJ IV (06:18)
[2019-02-25 07:07] LABS: ADD MAN DIFF? NO
[2019-02-25 07:13] LABS: WHITE BLOOD COUNT 7.8 10^3/ul (4.8-10.8)
[2019-02-25 07:13] LABS: ABNORMAL IP MESSAGE 1; BASOPHILS % 0.1 % (0.0-2.0); HEMATOCRIT 25.3 % (37.0-47.0); HEMOGLOBIN 8.1 g/dl (12.0-16.0); LYMPHOCYTES # 0.9 10^3/ul (0.8-2.9); LYMPHOCYTES % 11.3 % (15.0-51.0); MEAN CORPUSCULAR HEMOGLOBIN 33.6 pg (29.0-33.0); MEAN PLATELET VOLUME 11.7 fl (7.4-10.4); MONOCYTE # 0.3 10^3/ul (0.3-0.9); MONOCYTES % 4.3 % (0.0-11.0); NEUTROPHIL # 6.5 10^3/ul (1.6-7.5); NEUTROPHILS % 82.9 % (39.0-77.0); NUCLEATED RED BLOOD CELLS # 0.1 10^3/ul (0.0-0.0); NUCLEATED RED BLOOD CELLS% 0.6 /100WBC (0.0-0.0); PLATELET COUNT 34 10^3/UL (140-415); RED BLOOD COUNT 2.41 10^6/ul (4.20-5.40); RED CELL DISTRIBUTION WIDTH 19.7 % (11.5-14.5)
[2019-02-25 07:21] LABS: POSITIVE DIFF @See below
[2019-02-25 07:34] LABS: ALANINE AMINOTRANSFERASE 75 IU/L (13-69); ALBUMIN 3.9 g/dl (3.3-4.9); ALKALINE PHOSPHATASE 90 IU/L (42-121); ANION GAP 3 (5-13); ASPARTATE AMINO TRANSFERASE 47 IU/L (15-46); BILIRUBIN,INDIRECT 0.4 mg/dl (0-1.1); BILIRUBIN,TOTAL 0.4 mg/dl (0.2-1.3); BLOOD UREA NITROGEN 10 mg/dl (7-20); CALCIUM 9.1 mg/dl (8.4-10.2); CARBON DIOXIDE 30 mmol/L (21-31); CHLORIDE 103 mmol/L (97-110); CREATININE 0.81 mg/dl (0.44-1.00); Estimated GFR > 60 mL/min (>60); GLUCOSE 138 mg/dl (70-220); PHOSPHORUS 3.6 mg/dl (2.5-4.9); POTASSIUM 4.8 mmol/L (3.5-5.1); SODIUM 136 mmol/L (135-144)
[2019-02-25 07:45] LABS: ALBUMIN/GLOBULIN RATIO 0.53; TOTAL PROTEIN 11.2 g/dl (6.1-8.1)
[2019-02-25] MEDS: LIOTHYRONINE 5 MCG TAB PO ×2 (08:31→20:29)
[2019-02-25] MEDS: FAMOTIDINE 20 MG TAB PO ×2 (08:31→20:29)
[2019-02-25] MEDS: CHOLECALCIFEROL 1,000 UNIT TAB PO (08:31)
[2019-02-25] MEDS: CYANOCOBALAMIN 500 MCG TAB PO (08:31)
[2019-02-25] MEDS: LEVOTHYROXINE 100 MCG TAB PO ×2 (08:31→20:29)
[2019-02-25] MEDS: DEXAMETHASONE 4 MG TAB PO (09:50)
[2019-02-25] MEDS: OXYCODONE/ACETAMINOPHEN (10/325) TAB PO (15:35)
[2019-02-25] MEDS: IMMUNE GLOBUL G/GLY/IGA AVG 46 400 ML IV (16:23)
[2019-02-26] MEDS: HYDROmorphONE 1 MG/ML SYG IV ×6 (02:54→18:15)
[2019-02-26] MEDS: DIPHENHYDRAMINE 50 MG INJ IV ×4 (05:51→18:15)
[2019-02-26] MEDS: PANTOPRAZOLE 40 MG INJ IV (05:51)
[2019-02-26 06:28] LABS: ADD MAN DIFF? NO
[2019-02-26 06:40] LABS: WHITE BLOOD COUNT 17.1 10^3/ul (4.8-10.8)
[2019-02-26 06:40] LABS: ABNORMAL IP MESSAGE 1; BASOPHILS % 0.1 % (0.0-2.0); HEMATOCRIT 25.2 % (37.0-47.0); HEMOGLOBIN 7.9 g/dl (12.0-16.0); LYMPHOCYTES # 0.9 10^3/ul (0.8-2.9); LYMPHOCYTES % 5.1 % (15.0-51.0); MEAN CORPUSCULAR HEMOGLOBIN 33.8 pg (29.0-33.0); MEAN CORPUSCULAR HGB CONC 31.3 g/dl (32.0-37.0); MEAN CORPUSCULAR VOLUME 107.7 fl (82.0-101.0); MEAN PLATELET VOLUME 12.6 fl (7.4-10.4); MONOCYTE # 0.5 10^3/ul (0.3-0.9); MONOCYTES % 2.6 % (0.0-11.0); NEUTROPHIL # 15.3 10^3/ul (1.6-7.5); NEUTROPHILS % 89.3 % (39.0-77.0); NUCLEATED RED BLOOD CELLS # 0.1 10^3/ul (0.0-0.0); NUCLEATED RED BLOOD CELLS% 0.3 /100WBC (0.0-0.0); PLATELET COUNT 46 10^3/UL (140-415); RED BLOOD COUNT 2.34 10^6/ul (4.20-5.40); RED CELL DISTRIBUTION WIDTH 19.8 % (11.5-14.5)
[2019-02-26 06:49] LABS: POSITIVE DIFF @See below
[2019-02-26 07:02] LABS: ANION GAP 6 (5-13); BLOOD UREA NITROGEN 11 mg/dl (7-20); CALCIUM 9.2 mg/dl (8.4-10.2); CARBON DIOXIDE 26 mmol/L (21-31); CHLORIDE 105 mmol/L (97-110); CREATININE 0.78 mg/dl (0.44-1.00); Estimated GFR > 60 mL/min (>60); GLUCOSE 207 mg/dl (70-220); POTASSIUM 4.3 mmol/L (3.5-5.1); SODIUM 137 mmol/L (135-144)
[2019-02-26] MEDS: LEVOTHYROXINE 100 MCG TAB PO (08:44)
[2019-02-26] MEDS: CHOLECALCIFEROL 1,000 UNIT TAB PO (08:44)
[2019-02-26] MEDS: FAMOTIDINE 20 MG TAB PO (08:44)
[2019-02-26] MEDS: CYANOCOBALAMIN 500 MCG TAB PO (08:45)
[2019-02-26] MEDS: DEXAMETHASONE 4 MG TAB PO (08:45)
[2019-02-26] MEDS: LIOTHYRONINE 5 MCG TAB PO ×3 (09:00→15:12)
== END 2019-02-26 18:25 | disposition home or self-care (01) | DRG 813 ==
LOC: E/R 11:01 → PP2 17:03
PROC: 6A550Z2 Pheresis of Platelets, Single (ICD-10-PCS; principal; 2019-02-24)
DX: D69.3 Immune thrombocytopenic purpura (principal); D57.1 Sickle-cell disease without crisis; E06.3 Autoimmune thyroiditis; M32.9 Systemic lupus erythematosus, unspecified; G89.29 Other chronic pain; Z90.81 Acquired absence of spleen
CPT/HCPCS: 36430; 71045; 80048; 80053; 83735; 84100; 84439; 84443; 85025; 86644; 86850; 86900; 86901; 86945; 87081; 96374; 99285-25

== ENCOUNTER 2019-03-19 09:29 | Emergency (ER) | payer OTHER ==
[2019-03-19 10:26] LABS: ADD MAN DIFF? NO
[2019-03-19 10:29] LABS: WHITE BLOOD COUNT 8.2 10^3/ul (4.8-10.8)
[2019-03-19 10:29] LABS: ABNORMAL IP MESSAGE 1; BASOPHILS % 0.4 % (0.0-2.0); EOSINOPHILS % 0.2 % (0.0-7.0); HEMATOCRIT 30.4 % (37.0-47.0); HEMOGLOBIN 10.2 g/dl (12.0-16.0); LYMPHOCYTES # 2.9 10^3/ul (0.8-2.9); LYMPHOCYTES % 35.6 % (15.0-51.0); MEAN CORPUSCULAR HEMOGLOBIN 34.1 pg (29.0-33.0); MEAN CORPUSCULAR HGB CONC 33.6 g/dl (32.0-37.0); MEAN CORPUSCULAR VOLUME 101.7 fl (82.0-101.0); MEAN PLATELET VOLUME 12.5 fl (7.4-10.4); MONOCYTES % 12.5 % (0.0-11.0); NEUTROPHIL # 4.2 10^3/ul (1.6-7.5); NEUTROPHILS % 51.1 % (39.0-77.0); PLATELET COUNT 83 10^3/UL (140-415); RED BLOOD COUNT 2.99 10^6/ul (4.20-5.40); RED CELL DISTRIBUTION WIDTH 15.8 % (11.5-14.5)
[2019-03-19 10:30] LABS: POSITIVE DIFF @See below
[2019-03-19 10:48] LABS: ANION GAP 6 (5-13); BLOOD UREA NITROGEN 7 mg/dl (7-20); CALCIUM 9.5 mg/dl (8.4-10.2); CARBON DIOXIDE 26 mmol/L (21-31); CHLORIDE 107 mmol/L (97-110); CREATININE 0.88 mg/dl (0.44-1.00); Estimated GFR > 60 mL/min (>60); GLUCOSE 88 mg/dl (70-220); POTASSIUM 4.6 mmol/L (3.5-5.1); SODIUM 139 mmol/L (135-144)
[2019-03-19 10:50] LABS: INR 1.02; PROTIME 13.5 Sec (11.9-14.9); PT RATIO 1.1
[2019-03-19] MEDS: SOD CHLORIDE 0.9% 1,000 ML IV (11:07)
[2019-03-19] MEDS: ONDANSETRON 4 MG INJ IV (11:07)
[2019-03-19] MEDS: HYDROmorphONE 0.5 MG/0.5 ML SYG IV (11:08)
[2019-03-19] MEDS: ACETAMINOPHEN 325 MG TAB PO (11:12)
[2019-03-19] MEDS: DIPHENHYDRAMINE 25 MG CAP PO (11:29)
== END 2019-03-19 12:42 | disposition home or self-care (01) ==
LOC: E/R 09:29
DX: D69.6 Thrombocytopenia, unspecified (principal); D53.9 Nutritional anemia, unspecified; D57.00 Hb-SS disease with crisis, unspecified
CPT/HCPCS: 36415; 80048; 81025; 85025; 85610; 86850; 86900; 86901; 96374; 96375; 99284-25

== ENCOUNTER 2019-04-03 05:17 | Observation (INO) | payer OTHER ==
[2019-04-03 06:21] LABS: ADD MAN DIFF? NO
[2019-04-03] MEDS: HYDROmorphONE 2 MG/ML SYG IV ×2 (06:25→08:42)
[2019-04-03] MEDS: ONDANSETRON 4 MG INJ IV ×4 (06:25→19:20)
[2019-04-03 06:34] LABS: WHITE BLOOD COUNT 9.1 10^3/ul (4.8-10.8)
[2019-04-03 06:34] LABS: BASOPHIL # 0.1 10^3/ul (0.0-0.1); BASOPHILS % 0.8 % (0.0-2.0); EOSINOPHILS # 0.3 10^3/ul (0.0-0.5); HEMATOCRIT 32.3 % (37.0-47.0); HEMOGLOBIN 10.6 g/dl (12.0-16.0); LYMPHOCYTES # 2.9 10^3/ul (0.8-2.9); LYMPHOCYTES % 32.2 % (15.0-51.0); MEAN CORPUSCULAR HEMOGLOBIN 31.9 pg (29.0-33.0); MEAN CORPUSCULAR HGB CONC 32.8 g/dl (32.0-37.0); MEAN CORPUSCULAR VOLUME 97.3 fl (82.0-101.0); MEAN PLATELET VOLUME 11.1 fl (7.4-10.4); MONOCYTE # 1.3 10^3/ul (0.3-0.9); MONOCYTES % 14.4 % (0.0-11.0); NEUTROPHIL # 4.5 10^3/ul (1.6-7.5); NEUTROPHILS % 49.2 % (39.0-77.0); NUCLEATED RED BLOOD CELLS% 0.2 /100WBC (0.0-0.0); PLATELET COUNT 132 10^3/UL (140-415); RED BLOOD COUNT 3.32 10^6/ul (4.20-5.40); RED CELL DISTRIBUTION WIDTH 14.1 % (11.5-14.5)
[2019-04-03 06:37] LABS: ADD UMIC YES; UR ASCORBIC ACID NEGATIVE (NEGATIVE); UR BILIRUBIN (Dip) NEGATIVE (NEGATIVE); UR BLOOD (Dip) NEGATIVE (NEGATIVE); UR CLARITY CLOUDY (CLEAR); UR COLOR YELLOW (YELLOW); UR GLUCOSE (Dip) NEGATIVE (NEGATIVE); UR KETONES (Dip) NEGATIVE (NEGATIVE); UR LEUKOCYTE ESTERASE (Dip) NEGATIVE Leu/ul (NEGATIVE); UR NITRITE (Dip) NEGATIVE (NEGATIVE); UR RBC 1 /HPF (0-5); UR SPECIFIC GRAVITY (Dip) 1.011 (1.003-1.030); UR SQUAMOUS EPITHELIAL CELL MODERATE /HPF (FEW); UR TOTAL PROTEIN (Dip) NEGATIVE (NEGATIVE); UR UROBILINOGEN (Dip) NEGATIVE (NEGATIVE); UR WBC 3 /HPF (0-5)
[2019-04-03 06:50] LABS: ALANINE AMINOTRANSFERASE 19 IU/L (13-69); ALBUMIN 4.1 g/dl (3.3-4.9); ALBUMIN/GLOBULIN RATIO 0.89; ALKALINE PHOSPHATASE 76 IU/L (42-121); ANION GAP 5 (5-13); ASPARTATE AMINO TRANSFERASE 36 IU/L (15-46); BILIRUBIN,INDIRECT 0.4 mg/dl (0-1.1); BILIRUBIN,TOTAL 0.4 mg/dl (0.2-1.3); BLOOD UREA NITROGEN 5 mg/dl (7-20); CALCIUM 9.2 mg/dl (8.4-10.2); CARBON DIOXIDE 27 mmol/L (21-31); CHLORIDE 107 mmol/L (97-110); CREATININE 0.68 mg/dl (0.44-1.00); Estimated GFR > 60 mL/min (>60); GLUCOSE 88 mg/dl (70-220); LIPASE 66 U/L (23-300); POTASSIUM 3.9 mmol/L (3.5-5.1); SODIUM 139 mmol/L (135-144); TOTAL PROTEIN 8.7 g/dl (6.1-8.1)
[2019-04-03] MEDS ORDERED: ACETAMINOPHEN 325 MG TAB PO ×3 (08:00→22:00)
[2019-04-03] MEDS ORDERED: ONDANSETRON 4 MG INJ IV ×2 (08:30→22:00)
[2019-04-03] MEDS: SOD CHLORIDE 0.9% 1,000 ML IV ×3 (08:41→19:39)
[2019-04-03 09:09] LABS: RETICULOCYTE COUNT # 0.066 X10^6 (0.020-0.110)
[2019-04-03 09:09] LABS: RETICULOCYTE RBC 3.31
[2019-04-03] MEDS ORDERED: ELTROMBOPAG OLAMINE 50 MG PO (11:30)
[2019-04-03] MEDS ORDERED: BUPRENORPHINE TD (11:30)
[2019-04-03] MEDS: HYDROmorphONE 0.5 MG/0.5 ML SYG IV ×4 (12:11→22:51)
[2019-04-03] MEDS: LIOTHYRONINE 5 MCG TAB PO ×2 (12:30→23:32)
[2019-04-03] MEDS: DIPHENHYDRAMINE 50 MG INJ IV (22:46)
[2019-04-03] MEDS: PROMACTA 50 MG PO (23:30)
[2019-04-04] MEDS: SOD CHLORIDE 0.9% 1,000 ML IV ×3 (03:30→16:52)
[2019-04-04] MEDS: ONDANSETRON 4 MG INJ IV (04:36)
[2019-04-04] MEDS: HYDROmorphONE 0.5 MG/0.5 ML SYG IV ×5 (04:36→20:43)
[2019-04-04] MEDS: DIPHENHYDRAMINE 50 MG INJ IV ×3 (04:41→16:51)
[2019-04-04] MEDS: LEVOTHYROXINE 100 MCG TAB PO (06:45)
[2019-04-04] MEDS ORDERED: PROMACTA 50 MG PO (09:00)
[2019-04-04] MEDS: LIOTHYRONINE 5 MCG TAB PO ×2 (09:33→20:42)
[2019-04-04] MEDS: PROMACTA 50 MG PO (09:33)
[2019-04-04] MEDS: OXYCODONE/ACETAMINOPHEN (10/325) TAB PO ×2 (10:58→19:34)
[2019-04-04] MEDS ORDERED: IOHEXOL 10 MG(I)/ML (PED) BTL PO (11:30)
[2019-04-04] MEDS ORDERED: IOHEXOL 14.3 MG(I)/ML (ADULT) BTL PO (11:30)
[2019-04-04] MEDS: BARIUM SULF 2% 450 ML BTL (BERRY SMOOTHIE) PO (13:24)
[2019-04-04] MEDS: SOD CHLORIDE 0.9% 100 ML (15:57)
[2019-04-04] MEDS: IOHEXOL 300MG/ML 150 ML BTL (15:57)
== END 2019-04-04 21:56 | disposition home or self-care (01) ==
LOC: E/R 05:17 → MS1 08:23
DX: D57.00 Hb-SS disease with crisis, unspecified (principal); M32.9 Systemic lupus erythematosus, unspecified; E03.9 Hypothyroidism, unspecified; D69.3 Immune thrombocytopenic purpura
CPT/HCPCS: 36415; 74177; 80053; 81001; 81025; 83690; 84443; 85025; 85045; 96374; 96375; 99285-25